=== PATIENT | female | born 1975 | race Caucasian/White ===

== ENCOUNTER → 2019-05-23 11:25 | Outpatient (BNVA) | payer MEDICARE, MEDICAID, SELFPAY | PROVIDERS: Family Provider Family Medicine; PCP Family Medicine; Referring Provider Internal Medicine Rheumatology; Visit Provider Internal Medicine Rheumatology | DX: M32.9 Systemic lupus erythematosus, unspecified (principal) | CPT/HCPCS: 96365; 96366; 96375; 96374; J0490; J1200; J2930; J7050 ==

== ENCOUNTER 2019-05-23 12:00 | Outpatient (CLI) | payer MEDICARE, MEDICAID, SELFPAY | END 2019-05-23 12:01 | disposition home or self-care (01) | LOC: RHEOACUTE 06-10 12:28 | PROVIDERS: Family Provider Family Medicine; PCP Family Medicine; Visit Provider Internal Medicine Rheumatology | DX: M32.9 Systemic lupus erythematosus, unspecified (principal) | CPT/HCPCS: J0490; J1200; J2930; J7050 ==

== ENCOUNTER 2019-06-20 10:51 | Outpatient (CLI) | payer MEDICARE, MEDICAID, SELFPAY ==
[2019-06-20 01:30] VITALS: BP 129/88; PULSE 88; RESP 16; TEMP 36.8; O2SAT 98
[2019-06-20] MEDS: diphenhydrAMINE 50 mg/mL SDV 1mL 25 MG IVP (12:24)
[2019-06-20] MEDS: sodium chloride 0.9 % (flush) syringe 10 mL 50 ML IV (12:24)
[2019-06-20 16:08] VITALS: BP 152/92; PULSE 92; RESP 16; TEMP 36.7; O2SAT 98
--- NOTE | 2019-06-20 16:11 | PC.NURSE ---
NOTED NUMEROUS BRUISES TO BILAT UPPER EXTREMITIES. SPOKE WITH PATIENT PRIVATELY AFTER INFUSION COMPLETE. MENTIONED CONCERN ABOUT BRUISES AND ASKED IF SHE NEEDED HELP OR RESOURCES FOR HELP. PT DENIED. STATES NOT IN A RELATIONSHIP NOW, JUST BRUISES.
== END 2019-06-20 10:52 | disposition home or self-care (01) ==
LOC: RHEOACUTE 10:52
PROVIDERS: Family Provider Family Medicine; PCP Family Medicine; Visit Provider Internal Medicine Rheumatology
DX: M32.14 Glomerular disease in systemic lupus erythematosus (principal); M32.9 Systemic lupus erythematosus, unspecified; Z79.899 Other long term (current) drug therapy
CPT/HCPCS: 36415; 80053; 81001; 85651; 86160; 87086; 96365; 96374; 96375; J0490; J1200; J2930; J7050

== ENCOUNTER → 2019-06-20 11:50 | Outpatient (BNVA) | payer MEDICARE, MEDICAID, SELFPAY | PROVIDERS: Family Provider Family Medicine; PCP Family Medicine; Visit Provider Internal Medicine Rheumatology | DX: M32.14 Glomerular disease in systemic lupus erythematosus (principal); M32.9 Systemic lupus erythematosus, unspecified | CPT/HCPCS: 85025 ==

== ENCOUNTER → 2019-07-06 18:55 | Outpatient (BNVA) | payer MEDICARE, SELFPAY | PROVIDERS: Family Provider Family Medicine; PCP Family Medicine; Visit Provider Family Medicine | DX: B35.1 Tinea unguium (principal); R30.0 Dysuria; N76.0 Acute vaginitis; B96.89 Other specified bacterial agents as the cause of diseases classified elsewhere; B37.3 Candidiasis of vulva and vagina; M32.19 Other organ or system involvement in systemic lupus erythematosus; B37.9 Candidiasis, unspecified | CPT/HCPCS: 81003; 87086 ==

== ENCOUNTER 2019-08-04 13:32 | Outpatient (CLI) | payer MEDICARE, MEDICAID, SELFPAY ==
[2019-08-04 13:45] VITALS: BP 138/78; PULSE 103; RESP 16; TEMP 36.8; O2SAT 95
[2019-08-04] MEDS: diphenhydrAMINE 50 mg/mL SDV 1mL 25 MG IVP (14:31)
== END 2019-08-04 13:33 | disposition home or self-care (01) ==
LOC: RHEOACUTE 13:32
PROVIDERS: Family Provider Family Medicine; PCP Family Medicine; Visit Provider Internal Medicine Rheumatology
DX: M32.9 Systemic lupus erythematosus, unspecified (principal); Z79.899 Other long term (current) drug therapy; Z11.1 Encounter for screening for respiratory tuberculosis; Z11.59 Encounter for screening for other viral diseases; Z72.89 Other problems related to lifestyle
CPT/HCPCS: 36415; 80076; 82306; 82565; 82575; 84156; 85651; 86140; 86160; 86704; 86803; 87340; 96365; 96374; 96375; J0490; J1200; J2930; J7050

== ENCOUNTER → 2019-08-04 13:47 | Outpatient (BNVA) | payer MEDICARE, MEDICAID, SELFPAY | PROVIDERS: Family Provider Family Medicine; PCP Family Medicine | DX: M32.9 Systemic lupus erythematosus, unspecified (principal); Z79.899 Other long term (current) drug therapy | CPT/HCPCS: 85025 ==

== ENCOUNTER → 2019-08-05 20:42 | Outpatient (BNVA) | payer MEDICARE, MEDICAID, SELFPAY | PROVIDERS: Family Provider Family Medicine; PCP Family Medicine; Visit Provider Internal Medicine Rheumatology | DX: M32.9 Systemic lupus erythematosus, unspecified (principal); Z79.899 Other long term (current) drug therapy | CPT/HCPCS: 81003 ==

== ENCOUNTER 2019-09-05 13:13 | Outpatient (CLI) | payer MEDICARE, MEDICAID, SELFPAY ==
[2019-09-05 13:29] VITALS: BP 120/62; PULSE 102; RESP 16; TEMP 36.7; O2SAT 98
[2019-09-05] MEDS: diphenhydrAMINE 50 mg/mL SDV 1mL 25 MG IVP (14:03)
[2019-09-05 15:19] VITALS: BP 125/78; PULSE 93; RESP 16; TEMP 36.9; O2SAT 98
== END 2019-09-05 13:14 | disposition home or self-care (01) ==
LOC: RHEOACUTE 13:14
PROVIDERS: Family Provider Family Medicine; PCP Family Medicine; Visit Provider Internal Medicine Rheumatology
DX: M32.9 Systemic lupus erythematosus, unspecified (principal)
CPT/HCPCS: 96365; 96374; 96375; J0490; J1200; J2930; J7050

== ENCOUNTER 2019-10-06 13:31 | Outpatient (CLI) | payer MEDICARE, MEDICAID, SELFPAY ==
[2019-10-06 14:00] VITALS: BP 141/85; PULSE 98; RESP 16; TEMP 36.7; O2SAT 98
[2019-10-06] MEDS: diphenhydrAMINE 50 mg/mL SDV 1mL 25 MG IVP (14:58)
[2019-10-06 16:25] VITALS: BP 145/79; PULSE 110; RESP 16; TEMP 36.4; O2SAT 98
== END 2019-10-06 13:32 | disposition home or self-care (01) ==
LOC: RHEOACUTE 13:32
PROVIDERS: Family Provider Family Medicine; PCP Family Medicine; Visit Provider Internal Medicine Rheumatology
DX: M32.19 Other organ or system involvement in systemic lupus erythematosus (principal); Z79.899 Other long term (current) drug therapy
CPT/HCPCS: 36415; 80076; 81003; 82565; 82570; 84156; 85025; 85651; 86140; 86160; 96365; 96374; 96375; J0490; J1200; J2930; J7050

== ENCOUNTER 2019-11-03 14:18 | Outpatient (CLI) | payer MEDICARE, MEDICAID, SELFPAY ==
[2019-11-03 14:46] VITALS: BP 150/85; PULSE 98; RESP 16; TEMP 36.8; O2SAT 98
[2019-11-03] MEDS: diphenhydrAMINE 50 mg/mL SDV 1mL 25 MG IVP (15:10)
[2019-11-03 16:45] VITALS: BP 132/83; PULSE 98; RESP 16; TEMP 36.6; O2SAT 98
== END 2019-11-03 14:19 | disposition home or self-care (01) ==
LOC: RHEOACUTE 14:19
PROVIDERS: Family Provider Family Medicine; PCP Family Medicine; Visit Provider Internal Medicine Rheumatology
DX: M32.9 Systemic lupus erythematosus, unspecified (principal)
CPT/HCPCS: 96365; 96374; 96375; J0490; J1200; J2930; J7050

== ENCOUNTER → 2019-11-30 15:27 | Outpatient (BNVA) | payer MEDICARE, MEDICAID, SELFPAY | PROVIDERS: Family Provider Family Medicine; PCP Family Medicine; Visit Provider Family Medicine | DX: M32.19 Other organ or system involvement in systemic lupus erythematosus (principal); R23.8 Other skin changes; N89.8 Other specified noninflammatory disorders of vagina; R53.83 Other fatigue; R63.5 Abnormal weight gain; Z51.81 Encounter for therapeutic drug level monitoring | CPT/HCPCS: 80053; 81000; 84443; 85025; 87491; 87591; 87661 ==

== ENCOUNTER 2019-12-07 13:31 | Outpatient (CLI) | payer MEDICARE, MEDICAID, SELFPAY ==
[2019-12-07 13:20] VITALS: BP 112/78; PULSE 90; RESP 16; TEMP 36.6; O2SAT 97
[2019-12-07] MEDS: diphenhydrAMINE 50 mg/mL SDV 1mL 25 MG IVP (14:00)
[2019-12-07 15:48] VITALS: BP 131/84; PULSE 89; RESP 16; TEMP 36.8; O2SAT 96
== END 2019-12-07 13:32 | disposition home or self-care (01) ==
LOC: RHEOACUTE 13:34
PROVIDERS: Family Provider Family Medicine; PCP Family Medicine; Visit Provider Internal Medicine Rheumatology
DX: M32.9 Systemic lupus erythematosus, unspecified (principal)
CPT/HCPCS: 96365; 96375; J0490; J1200; J2930; J7050

== ENCOUNTER → 2019-12-29 13:45 | Outpatient (BNVA) | payer OTHER, SELFPAY | PROVIDERS: Family Provider Family Medicine; PCP Family Medicine; Visit Provider Psychiatry & Neurology Psychiatry | DX: F31.81 Bipolar II disorder (principal); Z79.899 Other long term (current) drug therapy | CPT/HCPCS: 80061; 83036 ==

== ENCOUNTER → 2020-01-27 09:30 | Outpatient (BNVA) | payer MEDICARE, MEDICAID, SELFPAY ==
[2019-12-30 10:54] VITALS: BP 156/97; BMI 33.4
== END ==
PROVIDERS: Family Provider Family Medicine; PCP Family Medicine; Visit Provider Internal Medicine
DX: M32.19 Other organ or system involvement in systemic lupus erythematosus (principal); M32.9 Systemic lupus erythematosus, unspecified; R10.9 Unspecified abdominal pain; Z79.899 Other long term (current) drug therapy
CPT/HCPCS: 99213

== ENCOUNTER 2020-01-27 13:04 | Outpatient (CLI) | payer MEDICARE, MEDICAID, SELFPAY ==
[2019-12-30 10:54] VITALS: BP 156/97; BMI 33.4
--- NOTE | 2020-01-27 15:45 | US_ITS ---
WS: [id number] Bilateral renal ultrasound, 01/27/2020 Clinical Data: ?kidney stone Comparison: Abdomen ultrasound, 03/28/2013. Findings: The right kidney measures 10.8 cm x 5.0 cm x 4.4 cm and the left kidney is 11.3 cm x 6.5 cm x 6.2 cm. There are no cysts, masses or hydronephrosis. The renal cortical margin is normal. There are multipl e bilateral calcifications The abdominal aorta and inferior vena cava show no vascular abnormalities. The bladder was scanned and was not remarkable. US/US renal BI* [id number] Impression: Multiple bilateral renal calculi but no renal obstruction is seen.
== END 2020-01-27 13:05 | disposition home or self-care (01) ==
LOC: RAD 13:09
PROVIDERS: PCP Family Medicine; Visit Provider Internal Medicine
DX: N20.0 Calculus of kidney (principal); M32.19 Other organ or system involvement in systemic lupus erythematosus
CPT/HCPCS: 76770; 80053; 81003; 85025; 85651; 86140; 86160

== ENCOUNTER → 2020-03-21 08:08 | Outpatient (BNVA) | payer MEDICARE, SELFPAY ==
[2019-12-30 10:54] VITALS: BP 156/97; BMI 33.4
== END ==
PROVIDERS: PCP Family Medicine; Visit Provider Family Medicine
DX: R60.0 Localized edema (principal); M32.19 Other organ or system involvement in systemic lupus erythematosus; N20.0 Calculus of kidney; M51.9 Unspecified thoracic, thoracolumbar and lumbosacral intervertebral disc disorder; M79.7 Fibromyalgia; G89.4 Chronic pain syndrome; R39.9 Unspecified symptoms and signs involving the genitourinary system
CPT/HCPCS: 80053; 81000

== ENCOUNTER 2020-03-26 13:00 | Outpatient (CLI) | payer MEDICARE, MEDICAID, SELFPAY ==
[2019-12-30 10:54] VITALS: BP 156/97; BMI 33.4
[2020-03-26 13:16] VITALS: BP 129/76; PULSE 104; RESP 16; TEMP 36.8; O2SAT 97
--- NOTE | 2020-03-26 13:17 | PC.NURSE ---
Continue to c/o of right flank pain, off and on. States urine ok at PCP. Not on antibiotics.
[2020-03-26 13:30] VITALS: BMI 36.7
[2020-03-26] MEDS: acetaminophen 325 mg Tablet 975 MG PO (13:30)
[2020-03-26] MEDS: diphenhydrAMINE 50 mg/mL SDV 1mL 25 MG IVP (13:50)
--- NOTE | 2020-03-26 14:14 | PC.NURSE ---
labs obtained with IV start.
[2020-03-26 15:20] VITALS: BP 125/81; PULSE 102; RESP 16; O2SAT 97
== END 2020-03-26 13:01 | disposition home or self-care (01) ==
LOC: RHEOACUTE 13:01
PROVIDERS: PCP Family Medicine; Visit Provider Internal Medicine
DX: M32.19 Other organ or system involvement in systemic lupus erythematosus (principal); M32.9 Systemic lupus erythematosus, unspecified; Z79.899 Other long term (current) drug therapy
CPT/HCPCS: 81001; 82575; 84156; 85025; 85651; 87086; 96365; 96375; J0490; J1200; J2930; J7050

== ENCOUNTER 2020-04-23 13:12 | Outpatient (CLI) | payer MEDICARE, MEDICAID, SELFPAY ==
[2019-12-30 10:54] VITALS: BP 156/97; BMI 33.4
[2020-04-23 13:20] VITALS: BP 133/88; PULSE 101; RESP 16; TEMP 36.8; O2SAT 98
[2020-04-23] MEDS: acetaminophen 325 mg Tablet 975 MG PO (13:35)
[2020-04-23] MEDS: diphenhydrAMINE 50 mg/mL SDV 1mL 25 MG IVP (13:55)
[2020-04-23 14:10] VITALS: BMI 37.4
[2020-04-23 15:20] VITALS: BP 118/70; PULSE 88; RESP 16; O2SAT 98
== END 2020-04-23 13:13 | disposition home or self-care (01) ==
LOC: RHEOACUTE 13:13
PROVIDERS: PCP Family Medicine; Visit Provider Internal Medicine Rheumatology
DX: M32.19 Other organ or system involvement in systemic lupus erythematosus (principal); M79.7 Fibromyalgia; G89.4 Chronic pain syndrome; R63.5 Abnormal weight gain; Z79.899 Other long term (current) drug therapy; Z79.52 Long term (current) use of systemic steroids
CPT/HCPCS: 96365; 96375; 99213; J0490; J1200; J2930; J7050

== ENCOUNTER 2020-05-21 13:38 | Outpatient (CLI) | payer MEDICARE, MEDICAID, SELFPAY ==
[2019-12-30 10:54] VITALS: BP 156/97; BMI 33.4
[2020-05-21 14:05] VITALS: BP 130/84; PULSE 102; RESP 16; TEMP 36.6; O2SAT 98
[2020-05-21] MEDS: acetaminophen 325 mg Tablet 975 MG PO (14:17)
--- NOTE | 2020-05-21 14:35 | PC.NURSE ---
Pt on phone on important call. Will proceed with IV premeds after call ends
[2020-05-21] MEDS: diphenhydrAMINE 50 mg/mL SDV 1mL 25 MG IVP (14:45)
[2020-05-21 15:06] VITALS: BMI 35.9
[2020-05-21 16:14] VITALS: BP 123/80; PULSE 83; RESP 16; O2SAT 98
--- NOTE | 2020-05-21 16:14 | PC.NURSE ---
Dr. Hogan reviewed today's lab results. Medication changes written on medication list and given to pt.
== END 2020-05-21 13:39 | disposition home or self-care (01) ==
LOC: RHEOACUTE 13:39
PROVIDERS: PCP Family Medicine; Visit Provider Internal Medicine
DX: M32.19 Other organ or system involvement in systemic lupus erythematosus (principal); Z79.899 Other long term (current) drug therapy
CPT/HCPCS: 81001; 85025; 85651; 96365; 96375; J0490; J1200; J2930; J7050

== ENCOUNTER 2020-06-21 13:24 | Outpatient (CLI) | payer MEDICARE, MEDICAID, SELFPAY ==
[2019-12-30 10:54] VITALS: BP 156/97; BMI 33.4
[2020-06-21] MEDS: diphenhydrAMINE 50 mg/mL SDV 1mL 25 MG IVP (13:12)
[2020-06-21 14:30] VITALS: BP 122/78; BP 122/79; PULSE 105; PULSE 91; RESP 16; TEMP 36.6; TEMP 36.8; O2SAT 97; O2SAT 99
[2020-06-21] MEDS: acetaminophen 325 mg Tablet 975 MG PO (14:35)
[2020-06-21] MEDS: hydrocortisone 100 mg/2 mL SDV 75 MG IVP (14:37)
--- NOTE | 2020-07-17 08:38 | PC.NURSE ---
Due to an administrative issue we are doing a late entry for clarity of the medical record. The infusion case was routine and the approximate stop time was 1550 based upon the start time of 1450.
== END 2020-06-21 13:25 | disposition home or self-care (01) ==
PROVIDERS: PCP Family Medicine; Visit Provider Internal Medicine
DX: M32.19 Other organ or system involvement in systemic lupus erythematosus; M79.7 Fibromyalgia; G89.4 Chronic pain syndrome; Z79.52 Long term (current) use of systemic steroids
CPT/HCPCS: 96365; 96375; J0490; J1200; J1720; J7050

== ENCOUNTER → 2020-07-16 15:42 | Outpatient (BNVA) | payer MEDICARE, MEDICAID, SELFPAY ==
[2019-12-30 10:54] VITALS: BP 156/97; BMI 33.4
== END ==
PROVIDERS: PCP Family Medicine; Visit Provider Internal Medicine
DX: M32.19 Other organ or system involvement in systemic lupus erythematosus (principal); Z79.899 Other long term (current) drug therapy; Z79.52 Long term (current) use of systemic steroids
CPT/HCPCS: 99214

== ENCOUNTER 2020-07-19 13:57 | Outpatient (CLI) | payer MEDICARE, MEDICAID, SELFPAY ==
[2019-12-30 10:54] VITALS: BP 156/97; BMI 33.4
[2020-07-19 14:15] VITALS: BP 125/81; PULSE 117; RESP 16; TEMP 37; O2SAT 97
[2020-07-19] MEDS: acetaminophen 325 mg Tablet 975 MG PO (14:30)
[2020-07-19] MEDS: sodium chloride 0.9% 250 ML IV (14:35)
[2020-07-19] MEDS: diphenhydrAMINE 50 mg/mL SDV 1mL 25 MG IVP (14:38)
[2020-07-19 15:07] LABS: Alanine Aminotransferase 12 U/L (0-33); Albumin Level 4.2 g/dL (3.5-5.2); Alkaline Phosphatase 79 IU/L (35-105); Aspartate Amino Transferase 16 U/L (0-32); Globulin 2.3 g/dL (1.3-4.6); Total Bilirubin 0.3 mg/dL (0.15-1.2); Total Protein 6.5 g/dL (6.6-8.7)
[2020-07-19 15:25] LABS: Complement C3 106 mg/dL (90-180)
[2020-07-19 15:59] VITALS: BP 121/72; PULSE 92; RESP 16; TEMP 36.9; O2SAT 99
[2020-07-19 17:22] LABS: Urine Appearance Hazy (CLEAR); Urine Color Yellow (Yellow); pH Urine 6 (5-7)
[2020-07-19 17:23] LABS: Add Urine Microscopic? YES; Bilirubin Urine Neg (Negative); Blood Urine Neg (Negative); Glucose Urine UA Norm (Normal); Ketones Urine Negative (Negative); Leukocyte Esterase Urine Negative (Negative); Nitrate Urine Negative (Negative); Protein Urine Neg (Negative); Specific Gravity, Urine 1.025 (1.005-1.030); Urobilinogen Urine Norm (Negative)
[2020-07-19 17:24] LABS: Add Urine Culture? No; Bacteria Urine 1+ /hpf; Calcium Oxalate Crystals Urine 0-4 /hpf; Squamous Epithelial Cell Urine 25-40 /hpf (0-5)
[2020-07-19 18:08] LABS: Erythrocyte Sedimentation Rate 7 mm/hr (0-15)
== END 2020-07-19 13:58 | disposition home or self-care (01) ==
LOC: RHEOACUTE 14:01 → ONCMED 14:06
PROVIDERS: Internal Medicine Rheumatology; PCP Family Medicine; Visit Provider Internal Medicine
DX: M32.9 Systemic lupus erythematosus, unspecified (principal)
CPT/HCPCS: 80076; 81001; 85651; 86160; 96365; 96375; J0490; J1200; J2930; J7050

== ENCOUNTER 2020-08-28 10:54 | Outpatient (CLI) | payer MEDICARE, MEDICAID, SELFPAY ==
[2019-12-30 10:54] VITALS: BP 156/97; BMI 33.4
[2020-08-28 11:30] VITALS: BP 122/77; PULSE 101; RESP 18; TEMP 37.3; O2SAT 100
[2020-08-28] MEDS: sodium chloride 0.9% 250 ML IV (11:30)
[2020-08-28] MEDS: acetaminophen 325 mg Tablet 975 MG PO (11:35)
[2020-08-28] MEDS: diphenhydrAMINE 50 mg/mL SDV 1mL 25 MG IVP (11:38)
[2020-08-28 11:51] LABS: Basophils % 0.3 %; Eosinophils % 0.8 %; Hematocrit 39.3 % (37.0-47.0); Hemoglobin 12.7 g/dL (11.5-15.3); Lymphocytes # 0.8 10^3/uL (0.8-4.8); Lymphocytes % 22.9 %; Mean Corpuscular HGB Conc 32.3 g/dL (30.0-36.0); Mean Corpuscular Hemoglobin 28.1 pg (28.0-34.0); Mean Corpuscular Volume 86.9 fL (81-99); Mean Platelet Volume 11.3 fL (7.4-10.4); Monocytes # 0.4 10^3/uL (0.2-0.9); Monocytes % 11.2 %; Neutrophils # 2.37 10^3/uL (1.8-7.7); Neutrophils % 64.5 %; Nucleated Red Blood Cells % 0 %; Platelet Count 252 10^3/cmm (130-400); Red Blood Count 4.52 10^6/uL (4.1-5.3); Red Cell Distribution Width 15.4 % (12.1-15.1); White Blood Count 3.7 10^3/uL (4.0-10.0)
[2020-08-28 12:17] LABS: Alanine Aminotransferase 11 U/L (0-33); Albumin Level 4.2 g/dL (3.5-5.2); Alkaline Phosphatase 64 IU/L (35-105); Anion Gap 10.7 (5-19); Aspartate Amino Transferase 13 U/L (0-32); Blood Urea Nitrogen 12 mg/dL (6-20); Calcium 8.8 mg/dL (8.5-10.5); Carbon Dioxide 24 mmol/L (22-29); Chloride 108 mmol/L (98-107); Glomerular Filtration Rate 90.1 mL/min (90-130); Glucose 94 mg/dL (65-115); Osmolality Calculated 288 mOsm/kg (285-295); Potassium 3.7 mmol/L (3.5-5.1); Sodium 139 mmol/L (136-145); Total Bilirubin 0.3 mg/dL (0.15-1.2); Total Protein 6.2 g/dL (6.6-8.7)
[2020-08-28 12:27] LABS: Urine Creatinine 338 mg/dL (28-217)
[2020-08-28 12:28] LABS: Total Protein, Random Urine 27.9 mg/dL (0.0-20.0)
[2020-08-28 12:35] LABS: Add Urine Microscopic? YES; Bilirubin Urine 1+ (Negative); Blood Urine 2+ (Negative); Glucose Urine UA Norm (Normal); Ketones Urine Negative (Negative); Leukocyte Esterase Urine Negative (Negative); Nitrate Urine Negative (Negative); Protein Urine Neg (Negative); RBC Urine 0-4 /hpf (0-2); Urine Appearance Clear (CLEAR); Urine Color Yellow (Yellow); Urobilinogen Urine Norm (Negative); pH Urine 5 (5-7)
[2020-08-28 12:36] LABS: Add Urine Culture? No; Bacteria Urine 1+ /hpf; Mucus Urine 3+ /hpf
[2020-08-28 12:51] VITALS: BP 113/74; PULSE 88; RESP 18; TEMP 37.3; O2SAT 100
[2020-08-28 12:52] LABS: Complement C3 115 mg/dL (90-180)
[2020-08-28 12:56] LABS: Erythrocyte Sedimentation Rate 8 mm/hr (0-15)
== END 2020-08-28 10:55 | disposition home or self-care (01) ==
LOC: ONCMED 10:58
PROVIDERS: Internal Medicine Rheumatology; PCP Family Medicine; Visit Provider Internal Medicine
DX: M32.9 Systemic lupus erythematosus, unspecified (principal)
CPT/HCPCS: 80053; 81001; 82248; 82570; 84156; 85025; 85651; 86160; 96365; 96375; J0490; J1200; J2930; J7050

== ENCOUNTER 2020-09-25 10:50 | Outpatient (CLI) | payer MEDICARE, MEDICAID, SELFPAY ==
[2019-12-30 10:54] VITALS: BP 156/97; BMI 33.4
[2020-09-25 11:22] VITALS: BP 128/81; PULSE 99; RESP 18; TEMP 36.5; O2SAT 100
[2020-09-25] MEDS: acetaminophen 325 mg Tablet 975 MG PO (11:32)
[2020-09-25] MEDS: sodium chloride 0.9% 250 ML 75 ML IV (11:39)
[2020-09-25] MEDS: diphenhydrAMINE 50 mg/mL SDV 1mL 25 MG IVP (11:41)
[2020-09-25 13:05] VITALS: BP 126/80; PULSE 102; RESP 17; TEMP 36.7; O2SAT 99
== END 2020-09-25 10:51 | disposition home or self-care (01) ==
LOC: ONCMED 10:52
PROVIDERS: PCP Family Medicine; Visit Provider Internal Medicine
DX: M32.9 Systemic lupus erythematosus, unspecified (principal)
CPT/HCPCS: 96365; 96375; J0490; J1200; J2930; J7050

== ENCOUNTER → 2020-10-18 14:32 | Outpatient (BNVA) | payer MEDICARE, MEDICAID, SELFPAY ==
[2019-12-30 10:54] VITALS: BP 156/97; BMI 33.4
== END ==
PROVIDERS: PCP Nurse Practitioner Family; Visit Provider Internal Medicine
DX: M32.19 Other organ or system involvement in systemic lupus erythematosus (principal); Z79.899 Other long term (current) drug therapy; M79.7 Fibromyalgia
CPT/HCPCS: 36415; 99214

== ENCOUNTER 2020-10-18 16:08 | Outpatient (CLI) | payer MEDICARE, MEDICAID, SELFPAY ==
[2019-12-30 10:54] VITALS: BP 156/97; BMI 33.4
== END 2020-10-18 16:09 | disposition home or self-care (01) ==
PROVIDERS: PCP Nurse Practitioner Family; Visit Provider Internal Medicine
DX: Z79.899 Other long term (current) drug therapy (principal)
CPT/HCPCS: 36415; 80053; 82550; 82728; 83540; 83735; 84100; 84443; 85025; 85651; 86140

== ENCOUNTER 2020-10-23 10:55 | Outpatient (CLI) | payer MEDICARE, MEDICAID, SELFPAY ==
[2019-12-30 10:54] VITALS: BP 156/97; BMI 33.4
[2020-10-23 11:07] VITALS: BP 136/90; PULSE 109; RESP 18; TEMP 36.9; O2SAT 100
[2020-10-23] MEDS: acetaminophen 325 mg Tablet 975 MG PO (11:28)
[2020-10-23] MEDS: sodium chloride 0.9% 250 ML 75 ML IV (11:32)
[2020-10-23] MEDS: diphenhydrAMINE 50 mg/mL SDV 1mL 25 MG IVP (11:32)
[2020-10-23 13:10] VITALS: BP 138/77; PULSE 105; RESP 18; TEMP 37.2; O2SAT 99
== END 2020-10-23 10:56 | disposition home or self-care (01) ==
PROVIDERS: PCP Nurse Practitioner Family; Referring Provider Internal Medicine Rheumatology; Visit Provider Internal Medicine
DX: M32.9 Systemic lupus erythematosus, unspecified (principal)
CPT/HCPCS: 96365; 96375; J0490; J1200; J2930; J7050

== ENCOUNTER 2020-11-21 10:40 | Outpatient (CLI) | payer MEDICARE, MEDICAID, SELFPAY ==
[2019-12-30 10:54] VITALS: BP 156/97; BMI 33.4
[2020-11-21 11:00] VITALS: BP 124/82; PULSE 91; RESP 18; TEMP 36.6; O2SAT 98
[2020-11-21] MEDS: acetaminophen 325 mg Tablet 975 MG PO (11:36)
[2020-11-21] MEDS: diphenhydrAMINE 50 mg/mL SDV 1mL 25 MG IVP (11:38)
[2020-11-21] MEDS: sodium chloride 0.9% 250 ML 75 ML IV (11:38)
[2020-11-21 11:53] LABS: Basophils % 0.7 %; Eosinophils # 0.2 10^3/uL (0.0-0.8); Eosinophils % 4.2 %; Hematocrit 36.8 % (37.0-47.0); Hemoglobin 11.5 g/dL (11.5-15.3); Lymphocytes # 0.8 10^3/uL (0.8-4.8); Lymphocytes % 19.4 %; Mean Corpuscular HGB Conc 31.3 g/dL (30.0-36.0); Mean Corpuscular Hemoglobin 29.5 pg (28.0-34.0); Mean Corpuscular Volume 94.4 fL (81-99); Mean Platelet Volume 11.1 fL (7.4-10.4); Monocytes # 0.4 10^3/uL (0.2-0.9); Monocytes % 8.2 %; Neutrophils # 2.88 10^3/uL (1.8-7.7); Neutrophils % 67.3 %; Nucleated Red Blood Cells % 0 %; Platelet Count 255 10^3/cmm (130-400); White Blood Count 4.3 10^3/uL (4.0-10.0)
[2020-11-21 12:04] LABS: Add Urine Microscopic? YES; Bilirubin Urine Neg (Negative); Blood Urine Neg (Negative); Glucose Urine UA Norm (Normal); Ketones Urine Negative (Negative); Leukocyte Esterase Urine Negative (Negative); Nitrate Urine Negative (Negative); Protein Urine Neg (Negative); Urine Appearance Cloudy (CLEAR); Urine Color Dark Yellow (Yellow); Urobilinogen Urine Norm (Negative); pH Urine 5 (5-7)
[2020-11-21 12:05] LABS: Add Urine Culture? No; Amorphous Sediment Urine 1+ /hpf; Bacteria Urine 1+ /hpf; Mucus Urine 2+ /hpf
[2020-11-21 12:11] LABS: Alanine Aminotransferase 12 U/L (0-33); Albumin Level 3.9 g/dL (3.5-5.2); Alkaline Phosphatase 59 IU/L (35-105); Globulin 1.8 g/dL (1.3-4.6); Glomerular Filtration Rate 107.6 mL/min (90-130); Total Bilirubin 0.3 mg/dL (0.15-1.2); Total Protein 5.7 g/dL (6.6-8.7)
[2020-11-21 12:13] LABS: Aspartate Amino Transferase 20 U/L (0-32)
[2020-11-21 13:04] LABS: Urine Creatinine 215 mg/dL (28-217)
[2020-11-21 13:39] VITALS: BP 120/72; PULSE 94; RESP 18; TEMP 36.4; O2SAT 98
[2020-11-21 13:40] LABS: Total Protein, Random Urine 21.8 mg/dL (0.0-20.0)
== END 2020-11-21 10:41 | disposition home or self-care (01) ==
PROVIDERS: PCP Nurse Practitioner Family; Referring Provider Internal Medicine Rheumatology; Visit Provider Internal Medicine Rheumatology
DX: M32.19 Other organ or system involvement in systemic lupus erythematosus; Z79.899 Other long term (current) drug therapy; M79.7 Fibromyalgia; R53.83 Other fatigue
CPT/HCPCS: 36415; 80076; 81001; 82565; 82570; 84156; 85025; 96365; 96375; 99214; J0490; J1200; J2930; J7050

== ENCOUNTER 2020-12-19 11:47 | Outpatient (CLI) | payer MEDICARE, MEDICAID, SELFPAY ==
[2019-12-30 10:54] VITALS: BP 156/97; BMI 33.4
[2020-12-19 11:52] VITALS: BP 153/77; PULSE 90; RESP 18; TEMP 36.8; O2SAT 98
[2020-12-19] MEDS: sodium chloride 0.9% 250 ML 75 ML IV (12:25)
[2020-12-19] MEDS: acetaminophen 325 mg Tablet 975 MG PO (12:27)
[2020-12-19] MEDS: diphenhydrAMINE 50 mg/mL SDV 1mL 25 MG IVP (12:28)
[2020-12-19 14:10] VITALS: BP 143/78; PULSE 91; RESP 18; TEMP 37; O2SAT 99
[2020-12-19 14:45] VITALS: BP 134/78; PULSE 102; RESP 18; O2SAT 98
--- NOTE | 2020-12-19 15:44 | PC.NURSE ---
Patient's pulse was steady, but slightly elevated at 102 upon discharge. Patient stated that she was having some anxiety from a recent phone call she had received. She was showing no other S/S of distress, and after reassessment from another nursing colleague, she left the infusion suite.
== END 2020-12-19 11:48 | disposition home or self-care (01) ==
PROVIDERS: PCP Nurse Practitioner Family; Visit Provider Internal Medicine Rheumatology
DX: M32.9 Systemic lupus erythematosus, unspecified (principal)
CPT/HCPCS: 96365; 96375; J0490; J1200; J2930; J7050

== ENCOUNTER 2020-12-26 17:48 | Outpatient (CLI) | payer MEDICARE, MEDICAID, SELFPAY ==
[2019-12-30 10:54] VITALS: BP 156/97; BMI 33.4
[2020-12-31 13:31] LABS: Anti-Nuclear Antibody Pattern Nuclear, Speckled; Anti-Nuclear Antibody Screen POSITIVE (NEGATIVE)
== END 2020-12-26 17:49 | disposition home or self-care (01) ==
PROVIDERS: PCP Nurse Practitioner Family; Visit Provider Internal Medicine
DX: G89.4 Chronic pain syndrome (principal); M32.19 Other organ or system involvement in systemic lupus erythematosus; M79.7 Fibromyalgia; Z79.899 Other long term (current) drug therapy
CPT/HCPCS: 36415; 86038

== ENCOUNTER 2021-03-06 16:00 | Outpatient (CLI) | payer MEDICARE, MEDICAID, SELFPAY ==
[2019-12-30 10:54] VITALS: BP 156/97; BMI 33.4
[2021-03-06 16:25] LABS: Basophils % 0.3 %; Eosinophils % 0.3 %; Hematocrit 38.9 % (37.0-47.0); Hemoglobin 12.4 g/dL (11.5-15.3); Lymphocytes # 1.5 10^3/uL (0.8-4.8); Lymphocytes % 22.9 %; Mean Corpuscular HGB Conc 31.9 g/dL (30.0-36.0); Mean Corpuscular Hemoglobin 28.4 pg (28.0-34.0); Mean Corpuscular Volume 89.2 fl (81-99); Mean Platelet Volume 10.8 fL (7.4-10.4); Monocytes # 0.4 10^3/uL (0.2-0.9); Monocytes % 5.4 %; Neutrophils # 4.72 10^3/uL (1.8-7.7); Neutrophils % 70.8 %; Nucleated Red Blood Cells % 0 %; Platelet Count 283 10^3/cmm (130-400); Red Blood Count 4.36 10^6/uL (4.1-5.3); Red Cell Distribution Width 13.5 % (12.1-15.1); White Blood Count 6.7 10^3/uL (4.0-10.0)
[2021-03-06 16:59] LABS: Alanine Aminotransferase 10 U/L (0-33); Albumin Level 4.3 g/dL (3.5-5.2); Alkaline Phosphatase 58 IU/L (35-105); Anion Gap 14.9 (5-19); Aspartate Amino Transferase 12 U/L (0-32); Blood Urea Nitrogen 11 mg/dL (6-20); C Reactive Protein 0.3 mg/L (0.0-4.9); Calcium 9.3 mg/dL (8.5-10.5); Carbon Dioxide 27 mmol/L (22-29); Chloride 101 mmol/L (98-107); Complement C3 108 mg/dL (90-180); Globulin 2.3 g/dL (1.3-4.6); Glomerular Filtration Rate 90.1 mL/min (90-130); Glucose 88 mg/dL (65-115); Osmolality Calculated 289 mOsm/kg (285-295); Sodium 140 mmol/L (136-145); Total Bilirubin 0.4 mg/dL (0.15-1.2); Total Protein 6.6 g/dL (6.6-8.7)
[2021-03-06 17:44] LABS: Potassium 2.9 mmol/L (3.5-5.1)
[2021-03-06 18:06] LABS: Add Urine Microscopic? YES; Bilirubin Urine Neg (Negative); Blood Urine 3+ (Negative); Glucose Urine UA Norm (Normal); Ketones Urine Negative (Negative); Leukocyte Esterase Urine Negative (Negative); Nitrate Urine Negative (Negative); Protein Urine Trace (Negative); Specific Gravity, Urine 1.025 (1.005-1.030); Urine Appearance Cloudy (CLEAR); Urine Color Yellow (Yellow); Urobilinogen Urine Norm (Negative); pH Urine 6 (5-7)
[2021-03-06 18:07] LABS: Add Urine Culture? No; Bacteria Urine 2+ /hpf; Mucus Urine TRACE /hpf; RBC Urine 0-4 /hpf (0-2); Squamous Epithelial Cell Urine 15-25 /hpf (0-5); WBC Urine 15-25 /hpf (0-5)
[2021-03-07 16:45] LABS: Erythrocyte Sedimentation Rate 2 mm/hr (0-15)
== END 2021-03-06 16:01 | disposition home or self-care (01) ==
PROVIDERS: PCP Nurse Practitioner Family; Visit Provider Internal Medicine
DX: M32.19 Other organ or system involvement in systemic lupus erythematosus (principal); M79.7 Fibromyalgia; Z79.899 Other long term (current) drug therapy; M51.9 Unspecified thoracic, thoracolumbar and lumbosacral intervertebral disc disorder
CPT/HCPCS: 36415; 80053; 81001; 85025; 85651; 86140; 86160

== ENCOUNTER → 2021-03-13 13:42 | Outpatient (BNVA) | payer MEDICARE, MEDICAID, SELFPAY ==
[2021-03-12 13:23] VITALS: BP 156/97; BMI 33.4
== END ==
PROVIDERS: PCP Nurse Practitioner Family; Visit Provider Internal Medicine
DX: M32.19 Other organ or system involvement in systemic lupus erythematosus (principal); Z79.899 Other long term (current) drug therapy; M79.7 Fibromyalgia; E87.6 Hypokalemia
CPT/HCPCS: 99214

== ENCOUNTER 2021-04-01 14:59 | Outpatient (CLI) | payer MEDICARE, MEDICAID, SELFPAY ==
[2021-03-12 13:23] VITALS: BP 156/97; BMI 33.4
[2021-04-01 16:09] LABS: Alanine Aminotransferase 11 U/L (0-33); Albumin Level 4.9 g/dL (3.5-5.2); Alkaline Phosphatase 75 IU/L (35-105); Anion Gap 18.3 (5-19); Aspartate Amino Transferase 15 U/L (0-32); Blood Urea Nitrogen 10 mg/dL (6-20); Calcium 9.5 mg/dL (8.5-10.5); Carbon Dioxide 25 mmol/L (22-29); Chloride 103 mmol/L (98-107); Globulin 2.7 g/dL (1.3-4.6); Glomerular Filtration Rate 77.2 mL/min (90-130); Glucose 96 mg/dL (65-115); Osmolality Calculated 295 mOsm/kg (285-295); Potassium 3.3 mmol/L (3.5-5.1); Sodium 143 mmol/L (136-145); Total Bilirubin 0.3 mg/dL (0.15-1.2); Total Protein 7.6 g/dL (6.6-8.7)
[2021-04-01 16:22] LABS: Vitamin B12 592 pg/mL (232-1245)
[2021-04-01 17:01] LABS: Creatinine Urine, Random 145 mg/dL (28-217)
[2021-04-01 17:10] LABS: Potassium, Radom Urine 63 mmol/L
[2021-04-01 18:41] LABS: Glucose Urine UA Norm (Normal); Protein Urine 1+ (Negative); Urine Appearance Clear (CLEAR); Urine Color Yellow (Yellow); pH Urine 5 (5-7)
[2021-04-01 18:42] LABS: Add Urine Culture? No; Add Urine Microscopic? YES; Bilirubin Urine Neg (Negative); Blood Urine Neg (Negative); Ketones Urine Negative (Negative); Leukocyte Esterase Urine Trace (Negative); Nitrate Urine Negative (Negative); RBC Urine 0-4 /hpf (0-2); Squamous Epithelial Cell Urine 0-4 /hpf (0-5); Urobilinogen Urine Norm (Negative); WBC Urine 0-4 /hpf (0-5)
== END 2021-04-01 15:00 | disposition home or self-care (01) ==
PROVIDERS: PCP Nurse Practitioner Family; Visit Provider Internal Medicine
DX: E87.6 Hypokalemia (principal); M32.19 Other organ or system involvement in systemic lupus erythematosus; Z79.899 Other long term (current) drug therapy
CPT/HCPCS: 80053; 81001; 82575; 82607; 84133

== ENCOUNTER → 2021-05-30 12:59 | Outpatient (BNVA) | payer MEDICARE, MEDICAID, SELFPAY ==
[2021-03-12 13:23] VITALS: BP 156/97; BMI 33.4
== END ==
PROVIDERS: PCP Nurse Practitioner Family; Visit Provider Internal Medicine
DX: M32.19 Other organ or system involvement in systemic lupus erythematosus (principal); Z79.899 Other long term (current) drug therapy; M79.7 Fibromyalgia
CPT/HCPCS: 99214

== ENCOUNTER 2021-06-26 13:25 | Outpatient (CLI) | payer MEDICARE, MEDICAID, SELFPAY ==
[2021-03-12 13:23] VITALS: BP 156/97; BMI 33.4
--- NOTE | 2021-06-26 13:39 | US_ITS ---
WS: [id number] ULTRASOUND BREAST LEFT TECHNIQUE: Ultrasound left breast focused area of concern. CLINICAL INFORMATION: MASS IN L BREAST COMPARISON: Outside ultrasound examination March 15, 2021 FINDINGS: Ultrasound LEFT breast at the 12:00 position. The previously described hypoechoic nodule 12:00 positi on is no longer visualized. This may have been a complex cyst or dilated duct with debris. Recommend 6 month follow-up to confirm resolution. No suspicious findings. No biopsy was performed today. US/US breast LT limited* [id number] IMPRESSION: BI-RADS 3 PROBABLY BENIGN FOLLOW UP: 6 MONTH ULTRASOUND LEFT BREAST WITH DIAGNOSTIC MAMMOGRAPHY LEFT MELODY ST RIGHT BREAST SCREENING MAMMOGRAPHY IS ALSO DUE AT THAT TIME.
== END 2021-06-26 13:26 | disposition home or self-care (01) ==
PROVIDERS: PCP Nurse Practitioner Family; Visit Provider Nurse Practitioner Family
DX: N63.20 Unspecified lump in the left breast, unspecified quadrant (principal)
CPT/HCPCS: 76642

== ENCOUNTER → 2021-08-23 10:25 | Outpatient (BNVA) | payer MEDICARE, MEDICAID, SELFPAY ==
[2021-03-12 13:23] VITALS: BP 156/97; BMI 33.4
== END ==
PROVIDERS: PCP Nurse Practitioner Family; Visit Provider Internal Medicine
DX: M32.19 Other organ or system involvement in systemic lupus erythematosus (principal); E87.6 Hypokalemia; Z79.899 Other long term (current) drug therapy
CPT/HCPCS: 80053; 83735; 85025; 99214

== ENCOUNTER 2021-11-11 16:51 | Outpatient (CLI) | payer MEDICARE, MEDICAID, SELFPAY ==
[2021-03-12 13:23] VITALS: BP 156/97; BMI 33.4
[2021-11-11 17:32] LABS: Basophils % 0.2 %; Eosinophils % 0.7 %; Hematocrit 37.5 % (37.0-47.0); Hemoglobin 12.2 g/dL (11.5-15.3); Lymphocytes % 23.9 %; Mean Corpuscular HGB Conc 32.5 g/dL (30.0-36.0); Mean Corpuscular Hemoglobin 28.5 pg (28.0-34.0); Mean Corpuscular Volume 87.6 fl (81-99); Monocytes # 0.2 10^3/uL (0.2-0.9); Monocytes % 4.7 %; Neutrophils # 2.97 10^3/uL (1.8-7.7); Neutrophils % 70.3 %; Nucleated Red Blood Cells % 0 %; Platelet Count 298 10^3/cmm (130-400); Red Blood Count 4.28 10^6/uL (4.1-5.3); White Blood Count 4.2 10^3/uL (4.0-10.0)
[2021-11-11 18:01] LABS: Alanine Aminotransferase 10 U/L (0-33); Albumin Level 4.5 g/dL (3.5-5.2); Alkaline Phosphatase 62 IU/L (35-105); Anion Gap 13.2 (5-19); Aspartate Amino Transferase 13 U/L (0-32); Blood Urea Nitrogen 13 mg/dL (6-20); Carbon Dioxide 27 mmol/L (22-29); Chloride 102 mmol/L (98-107); Gamma Glutamyl Transferase 21 U/L (5-36); Globulin 2.1 g/dL (1.3-4.6); Glomerular Filtration Rate 76.9 mL/min (90-130); Glucose 184 mg/dL (65-115); Lactate Dehydrogenase 134 U/L (135-214); Magnesium 2.2 mg/dL (1.7-2.3); Osmolality Calculated 293 mOsm/kg (285-295); Potassium 3.2 mmol/L (3.5-5.1); Sodium 139 mmol/L (136-145); Total Bilirubin 0.2 mg/dL (0.15-1.2); Total Protein 6.6 g/dL (6.6-8.7)
[2021-11-11 18:09] LABS: Free T4 Free Thyroxine 1.04 ng/dL (0.82-1.77); Thyroid Stimulating Hormone 1.07 uIU/mL (0.27-4.20)
[2021-11-11 18:49] LABS: Add Urine Microscopic? YES; Bilirubin Urine Neg (Negative); Blood Urine Trace (Negative); Glucose Urine UA Norm (Normal); Ketones Urine Negative (Negative); Leukocyte Esterase Urine Negative (Negative); Nitrate Urine Negative (Negative); Protein Urine Neg (Negative); RBC Urine 0-4 /hpf (0-2); Specific Gravity, Urine 1.015 (1.005-1.030); Urine Appearance Clear (CLEAR); Urine Color Yellow (Yellow); Urobilinogen Urine Norm (Negative); pH Urine 5 (5-7)
[2021-11-11 18:50] LABS: Add Urine Culture? No; Bacteria Urine TRACE /hpf; Squamous Epithelial Cell Urine 0-4 /hpf (0-5); WBC Urine 0-4 /hpf (0-5)
[2021-11-11 20:44] LABS: Complement C3 119 mg/dL (90-180)
[2021-11-14 13:38] LABS: Anti-Nuclear Antibody Pattern Nuclear, Speckled; Anti-Nuclear Antibody Screen POSITIVE (NEGATIVE)
== END 2021-11-11 16:52 | disposition home or self-care (01) ==
LOC: LAB 16:54
PROVIDERS: PCP Nurse Practitioner Family; Visit Provider Internal Medicine
DX: M32.9 Systemic lupus erythematosus, unspecified (principal); E87.6 Hypokalemia; M32.19 Other organ or system involvement in systemic lupus erythematosus; M51.9 Unspecified thoracic, thoracolumbar and lumbosacral intervertebral disc disorder; M79.7 Fibromyalgia; Z79.899 Other long term (current) drug therapy; H90.3 Sensorineural hearing loss, bilateral; R42 Dizziness and giddiness
CPT/HCPCS: 36415; 80053; 81001; 82977; 83615; 83735; 84439; 84443; 84450; 84460; 86038; 86140; 86160

== ENCOUNTER 2021-11-28 08:49 | Outpatient (CLI) | payer MEDICARE, MEDICAID, SELFPAY ==
[2021-03-12 13:23] VITALS: BP 156/97; BMI 33.4
--- NOTE | 2021-11-28 08:30 | US_ITS ---
WS: [id number] Complete ABDOMINAL ULTRASOUND HISTORY: Abdominal pain and swelling. Fatty liver. COMPARISON: 01/27/2020 and 03/28/2013 Liver: 15.7 cm in length. Liver is normal size and echogenicity with no mass or intrahepatic dilatati on. Portal Vein: Normal hepatopetal flow with monophasic waveform. Gallbladder: Normally distended with no gallstones, wall thickening or pericholecystic fluid. Gallbladder wall thickness: 0.2 cm. Pancreas: Normal size and echogenicity. CBD: 0.2 cm. Right kidney: 10.2 cm x 4.9 cm x 4.8 cm. No mass, cortical thickening or hydronephrosis. There are a few echogenic foci which could be small renal calculi. Left kidney: 10.5 cm x 5.2 cm x 5.4 cm. No mass, cortical thickening or hydronephrosis. There are a few echogenic foci which could be small renal calculi. Spleen: Normal size and echogenicity. Abdominal aorta and IVC are within normal limits. No ascites. US/US abdomen complete* [id number] IMPRESSION: Normal complete abdomen ultrasound.
== END 2021-11-28 08:50 | disposition home or self-care (01) ==
PROVIDERS: PCP Nurse Practitioner Family; Visit Provider Internal Medicine
DX: R14.0 Abdominal distension (gaseous) (principal)
CPT/HCPCS: 76700

== ENCOUNTER → 2021-11-29 11:17 | Outpatient (BNVA) | payer MEDICARE, MEDICAID, SELFPAY ==
[2021-03-12 13:23] VITALS: BP 156/97; BMI 33.4
== END ==
PROVIDERS: PCP Nurse Practitioner Family; Visit Provider Internal Medicine
DX: M32.19 Other organ or system involvement in systemic lupus erythematosus (principal); Z79.899 Other long term (current) drug therapy; E87.6 Hypokalemia; R10.9 Unspecified abdominal pain
CPT/HCPCS: 99214

== ENCOUNTER 2022-02-11 15:17 | Outpatient (CLI) | payer MEDICARE, MEDICAID, SELFPAY ==
[2021-03-12 13:23] VITALS: BP 156/97; BMI 33.4
--- NOTE | 2022-02-11 15:40 | MM_ITS ---
WS: [id number] BILATERAL 3D TOMOSYNTHESIS DIGITAL DIAGNOSTIC MAMMOGRAPHY WITH CAD CLINICAL INFORMATION: MASS IN BREAST;CYST OF BREAST HISTORY: Bilateral breast soreness and lumps. COMPARISON: March 15, 2021 TECHNIQUE: Bilateral CC, MLO, and ML views. FINDINGS: The breasts are composed of heterogeneous fibroglandular density, which can limit the detection of sm all underlying mass lesions. Palpable marker upper outer LEFT breast. Palpable marker upper outer RIG HT breast. Ultrasound described below. No new suspicious findings in either breast. Persistent dense nodular parenchymal tissue upper outer breasts bilaterally similar to previous. ULTRASOUND BREAST BILATERAL TECHNIQUE: Ultrasound bilateral breast focused area of concern. CLINICAL INFORMATION: MASS IN BREAST;CYST OF BREAST COMPARISON: 06/26/2021 and 03/15/2021 FINDINGS: RIGHT BREAST: Ultrasound RIGHT breast 9:00 position 4 cm from the nipple in the area of patient juan rn. Dense underlying parenchymal tissue. No cystic or solid lesions. No suspicious lesions to target for biopsy. LEFT BREAST: Ultrasound LEFT breast at the 1:00 position 3 cm from the nipple in the area of patient concern. Dense underlying parenchymal tissue. No cystic or solid lesions. No lesions to target for bi opsy. MM/[place] [id number] IMPRESSION: BI-RADS: 2-Benign FOLLOW UP: 1 Year Follow-up Recommend return to annual screening mammography.
[2022-02-11 17:55] LABS: Basophils % 0.2 %; Eosinophils # 0.1 10^3/uL (0.0-0.8); Eosinophils % 2.2 %; Hematocrit 38.7 % (37.0-47.0); Hemoglobin 12.1 g/dL (11.5-15.3); Lymphocytes # 1.1 10^3/uL (0.8-4.8); Lymphocytes % 26.6 %; Mean Corpuscular HGB Conc 31.3 g/dL (30.0-36.0); Mean Corpuscular Hemoglobin 28.6 pg (28.0-34.0); Mean Corpuscular Volume 91.5 fl (81-99); Mean Platelet Volume 10.7 fL (7.4-10.4); Monocytes # 0.4 10^3/uL (0.2-0.9); Monocytes % 9.1 %; Neutrophils # 2.58 10^3/uL (1.8-7.7); Neutrophils % 61.9 %; Nucleated Red Blood Cells % 0 %; Platelet Count 274 10^3/cmm (130-400); Red Blood Count 4.23 10^6/uL (4.1-5.3); Red Cell Distribution Width 13.2 % (12.1-15.1); White Blood Count 4.2 10^3/uL (4.0-10.0)
[2022-02-11 18:25] LABS: Erythrocyte Sedimentation Rate 3 mm/hr (0-15)
[2022-02-11 18:26] LABS: Bilirubin Urine Negative (Negative); Blood Urine Negative (Negative); Glucose Urine UA Negative (Normal); Ketones Urine Negative (Negative); Leukocyte Esterase Urine Negative; Nitrate Urine Negative; Protein Urine Negative (Negative); Specific Gravity, Urine 1.025 (1.005-1.030); Urine Appearance Clear (CLEAR); Urine Color Yellow (Yellow); Urobilinogen Urine 0.2 mg/dL (Negative)
[2022-02-11 18:34] LABS: Add Urine Culture? No; Bacteria Urine TRACE /hpf; RBC Urine 0-4 /hpf (0-2); Squamous Epithelial Cell Urine 0-4 /hpf (0-5); WBC Urine 0-4 /hpf (0-5)
[2022-02-11 18:35] LABS: Alanine Aminotransferase 12 U/L (0-33); Albumin Level 4.3 g/dL (3.5-5.2); Alkaline Phosphatase 61 U/L (35-105); Anion Gap 14.7 (5-19); Aspartate Amino Transferase 16 U/L (0-32); Blood Urea Nitrogen 16 mg/dL (6-20); Calcium 9.2 mg/dL (8.5-10.5); Carbon Dioxide 27 mmol/L (22-29); Chloride 104 mmol/L (98-107); Globulin 2.4 g/dL (1.3-4.6); Glomerular Filtration Rate 89.7 mL/min (90-130); Glucose 70 mg/dL (65-115); Osmolality Calculated 294 mOsm/kg (285-295); Potassium 3.7 mmol/L (3.5-5.1); Sodium 142 mmol/L (136-145); Total Bilirubin 0.2 mg/dL (0.15-1.2); Total Protein 6.7 g/dL (6.6-8.7)
[2022-02-11 18:53] LABS: Urine Creatinine 137 mg/dL (28-217); Urine Protein Random 8 mg/dL
== END 2022-02-11 15:18 | disposition home or self-care (01) ==
LOC: LAB 15:18
PROVIDERS: Internal Medicine; PCP Nurse Practitioner Family; Visit Provider Nurse Practitioner Family
DX: E87.6 Hypokalemia (principal); M32.19 Other organ or system involvement in systemic lupus erythematosus; Z79.899 Other long term (current) drug therapy; N63.15 Unspecified lump in the right breast, overlapping quadrants; N63.21 Unspecified lump in the left breast, upper outer quadrant; N64.4 Mastodynia
CPT/HCPCS: 36415; 76642; 77062; 80053; 81001; 82570; 84156; 85025; 85651; 86140

== ENCOUNTER → 2022-02-18 14:11 | Outpatient (BNVA) | payer MEDICARE, MEDICAID, SELFPAY ==
[2022-02-18 15:44] VITALS: BP 156/97; BMI 33.4
== END ==
PROVIDERS: PCP Nurse Practitioner Family; Visit Provider Internal Medicine
DX: M32.19 Other organ or system involvement in systemic lupus erythematosus (principal); Z79.899 Other long term (current) drug therapy; E87.6 Hypokalemia
CPT/HCPCS: 99213; 99214

== ENCOUNTER 2022-05-20 09:35 | Outpatient (CLI) | payer MEDICARE, MEDICAID, SELFPAY ==
[2022-02-18 15:44] VITALS: BP 156/97; BMI 33.4
--- NOTE | 2022-05-20 09:43 | MR_ITS ---
WS: [id number] MRI HEAD WITH CONTRAST WITH ATTENTION TO THE INTERNAL AUDITORY CANALS TECHNIQUE: Sagittal T1, T2 axial, T2 axial flair, axial susceptibility weighted imaging, axial diffus ion weighted images, and coronal T2 images were obtained. Pre and post T1 axial and post T1 coronal i mages. ADC and FSPGR images. Post gadolinium images with attention to the internal auditory canals. A xial fiesta imaging. CLINICAL INFORMATION: HEARING LOSS COMPARISON: MRI 2018 FINDINGS: No evidence of restricted diffusion to suggest acute ischemia. Ventricular system and basal cisterns are patent. Mild patchy supratentorial white matter changes unchanged since 2018. This is nonspecific in a patient this age but can be seen with hypertension, diabetes, collagen vascular disease, and mi graine headaches. No significant parenchymal volume loss. Normal posterior fossa. Normal vascular roberto carlos w voids at the skull base. No extra-axial fluid collections. Mucosal thickening RIGHT mastoid tip. Polypoid mucosal thickening in the maxillary sinuses. Fluid in the LEFT maxillary sinus. No hemosiderin on the susceptibly weighted images. Proximal 7th and 8th aircraft loadmaster superintendent nial nerves are normal in appearance. Normal trigeminal nerve root entry zones. No evidence of enhanc ing IAC or CP angle mass. No abnormal intracranial enhancement. Normal dural venous sinuses. MR/MR iac's wo/w con* [id number] IMPRESSION: 1. 7th and 8th cranial nerves are normal in appearance. No evidence of enhanci ng IAC or CP angle mass. 2. Mucosal thickening RIGHT mastoid tip. Trace mucosal thickening LEFT mastoid tip. 3. Polypoid mucosal thickening in the maxillary sinuses with LEFT maxillary si nusitis. 4. Stable mild supratentorial white matter changes nonspecific in a patient th is age but can be seen with hypertension, diabetes, collagen vascular disease, and migraine headaches. 5. No other suspicious findings.
[2022-05-20] MEDS: gadobenate dimeglumine 20 mL vial IV (10:31)
== END 2022-05-20 09:36 | disposition home or self-care (01) ==
LOC: RAD 09:35
PROVIDERS: PCP Nurse Practitioner Family; Visit Provider Specialist
DX: H91.90 Unspecified hearing loss, unspecified ear (principal)
CPT/HCPCS: 70553; A9577

== ENCOUNTER → 2022-06-03 13:39 | Outpatient (BNVA) | payer MEDICARE, MEDICAID, SELFPAY ==
[2022-02-18 15:44] VITALS: BP 156/97; BMI 33.4
== END ==
PROVIDERS: PCP Nurse Practitioner Family; Visit Provider Internal Medicine
DX: Z79.899 Other long term (current) drug therapy (principal)
CPT/HCPCS: 80053; 80061; 81000; 83036; 85025; 85651; 86140

== ENCOUNTER → 2022-06-12 10:53 | Outpatient (BNVA) | payer MEDICARE, MEDICAID, SELFPAY ==
[2022-06-12 11:02] VITALS: BP 156/97; BMI 33.4
== END ==
PROVIDERS: PCP Nurse Practitioner Family; Visit Provider Internal Medicine
DX: R59.1 Generalized enlarged lymph nodes (principal)
CPT/HCPCS: 99214

== ENCOUNTER 2022-07-01 11:22 | Outpatient (CLI) | payer MEDICARE, MEDICAID, SELFPAY ==
[2022-06-12 11:02] VITALS: BP 156/97; BMI 33.4
[2022-07-01 11:57] LABS: Add Urine Microscopic? NO; Charge for UA Resulting for Rev
[2022-07-01 12:02] LABS: Basophils % 0.4 %; Eosinophils # 0.1 10^3/uL (0.0-0.8); Eosinophils % 1.9 %; Hematocrit 34.2 % (37.0-47.0); Hemoglobin 10.9 g/dL (11.5-15.3); Lymphocytes # 0.8 10^3/uL (0.8-4.8); Lymphocytes % 16.9 %; Mean Corpuscular HGB Conc 31.9 g/dL (30.0-36.0); Mean Corpuscular Hemoglobin 28.8 pg (28.0-34.0); Mean Corpuscular Volume 90.5 fl (81-99); Mean Platelet Volume 10.4 fL (7.4-10.4); Monocytes # 0.3 10^3/uL (0.2-0.9); Monocytes % 5.8 %; Neutrophils # 3.44 10^3/uL (1.8-7.7); Neutrophils % 74.6 %; Nucleated Red Blood Cells % 0 %; Platelet Count 252 10^3/cmm (130-400); Red Blood Count 3.78 10^6/uL (4.1-5.3); Red Cell Distribution Width 13.2 % (12.1-15.1); White Blood Count 4.6 10^3/uL (4.0-10.0)
[2022-07-01 12:03] LABS: Erythrocyte Sedimentation Rate 5 mm/hr (0-15)
[2022-07-01 12:19] LABS: Alanine Aminotransferase 12 U/L (0-33); Albumin Level 4.2 g/dL (3.5-5.2); Alkaline Phosphatase 67 U/L (35-105); Anion Gap 12.4 (5-19); Aspartate Amino Transferase 16 U/L (0-32); Bilirubin Urine Neg (Negative); Blood Urea Nitrogen 7 mg/dL (6-20); Blood Urine Neg (Negative); Calcium 8.8 mg/dL (8.5-10.5); Carbon Dioxide 27 mmol/L (22-29); Chloride 104 mmol/L (98-107); Globulin 1.9 g/dL (1.3-4.6); Glomerular Filtration Rate 106.7 mL/min (90-130); Glucose 65 mg/dL (65-115); Glucose Urine UA Norm (Normal); Ketones Urine Negative (Negative); Leukocyte Esterase Urine Negative (Negative); Nitrate Urine Negative (Negative); Osmolality Calculated 286 mOsm/kg (285-295); Potassium 3.4 mmol/L (3.5-5.1); Protein Urine Neg (Negative); Sodium 140 mmol/L (136-145); Total Bilirubin 0.2 mg/dL (0.15-1.2); Total Protein 6.1 g/dL (6.6-8.7); Urine Appearance Clear (CLEAR); Urine Color Yellow (Yellow); Urobilinogen Urine Norm (Negative); pH Urine 5 (5-7)
== END 2022-07-01 11:23 | disposition home or self-care (01) ==
LOC: LAB 11:26
PROVIDERS: PCP Nurse Practitioner Family; Visit Provider Internal Medicine
DX: M79.7 Fibromyalgia (principal); M32.19 Other organ or system involvement in systemic lupus erythematosus; Z79.899 Other long term (current) drug therapy; R21 Rash and other nonspecific skin eruption; R59.1 Generalized enlarged lymph nodes; D72.819 Decreased white blood cell count, unspecified
CPT/HCPCS: 36415; 80053; 81003; 85025; 85651; 86140; 99213

== ENCOUNTER 2022-07-30 12:03 | Outpatient (CLI) | payer MEDICARE, MEDICAID, SELFPAY ==
[2022-06-12 11:02] VITALS: BP 156/97; BMI 33.4
--- NOTE | 2022-07-31 11:25 | NM_ITS ---
NOTE: Report was unsigned for reason: Order was edited. Original Signature date and time was: Dictated By: Kimmie Bennett DO Signed By: Kimmie Bennett DO Signed Date/Time: 08/01/22 0636 WS: [id number] NUCLEAR MEDICINE THYROID UPTAKE AND SCAN HISTORY: NONTOXIC SINGLE THYROID NODULE COMPARISON: None available. Radionucleotide: 108 uCi Iodine-123 sodium iodide capsule. Oral ingestion. Imaging performed at 24 hours post ingestion of capsule. Marker placed over the chin and suprasternal notch. Very slight increased uptake involving the lower pole RIGHT thyroid. RIGHT thyroid is slightly greater size than the LEFT. No photopenic nodules. Thyroid uptake at 24 hours: 17.8%. (Normal uptake at 24 hours 10-30%). [facility] [id number] IMPRESSION: 1. Normal thyroid uptake. 2. Single nodule lower pole RIGHT thyroid with mild increased uptake. This cor responds to a RIGHT thyroid nodules also seen on the CT from 2019 in the lower pole of the RIGHT thyroid. 3. No photopenic nodules.
== END 2022-07-30 12:04 | disposition home or self-care (01) ==
LOC: RAD 12:03
PROVIDERS: PCP Nurse Practitioner Family; Visit Provider Specialist
DX: E04.1 Nontoxic single thyroid nodule (principal)
CPT/HCPCS: 78014; A9516

== ENCOUNTER 2022-09-05 11:14 | Outpatient (CLI) | payer MEDICARE, MEDICAID, SELFPAY ==
[2022-06-12 11:02] VITALS: BP 156/97; BMI 33.4
[2022-09-05 12:17] LABS: Basophils % 0.8 %; Eosinophils # 0.1 10^3/uL (0.0-0.8); Eosinophils % 3.4 %; Hematocrit 34.9 % (37.0-47.0); Hemoglobin 11.3 g/dL (11.5-15.3); Lymphocytes # 0.7 10^3/uL (0.8-4.8); Lymphocytes % 30.1 %; Mean Corpuscular HGB Conc 32.4 g/dL (30.0-36.0); Mean Corpuscular Hemoglobin 29.3 pg (28.0-34.0); Mean Corpuscular Volume 90.4 fl (81-99); Mean Platelet Volume 11.3 fL (7.4-10.4); Monocytes # 0.2 10^3/uL (0.2-0.9); Monocytes % 9.3 %; Neutrophils # 1.32 10^3/uL (1.8-7.7); Nucleated Red Blood Cells % 0 %; Platelet Count 251 10^3/cmm (130-400); Red Blood Count 3.86 10^6/uL (4.1-5.3); Red Cell Distribution Width 13.9 % (12.1-15.1); White Blood Count 2.4 10^3/uL (4.0-10.0)
[2022-09-05 12:22] LABS: Erythrocyte Sedimentation Rate 3 mm/hr (0-15)
[2022-09-05 12:38] LABS: Alanine Aminotransferase 8 U/L (0-33); Albumin Level 4.2 g/dL (3.5-5.2); Alkaline Phosphatase 58 U/L (35-105); Anion Gap 13.8 (5-19); Aspartate Amino Transferase 13 U/L (0-32); Blood Urea Nitrogen 10 mg/dL (6-20); Calcium 8.8 mg/dL (8.5-10.5); Carbon Dioxide 26 mmol/L (22-29); Chloride 105 mmol/L (98-107); Globulin 2.2 g/dL (1.3-4.6); Glomerular Filtration Rate 89.3 mL/min (90-130); Glucose 105 mg/dL (65-115); Osmolality Calculated 291 mOsm/kg (285-295); Potassium 3.8 mmol/L (3.5-5.1); Sodium 141 mmol/L (136-145); Total Bilirubin 0.4 mg/dL (0.15-1.2); Total Protein 6.4 g/dL (6.6-8.7)
== END 2022-09-05 11:15 | disposition home or self-care (01) ==
LOC: LAB 11:19
PROVIDERS: PCP Nurse Practitioner Family; Visit Provider Internal Medicine
DX: M32.19 Other organ or system involvement in systemic lupus erythematosus (principal); Z79.899 Other long term (current) drug therapy
CPT/HCPCS: 36415; 80053; 85025; 85651; 86140

== ENCOUNTER → 2022-09-15 13:02 | Outpatient (BNVA) | payer MEDICARE, MEDICAID, SELFPAY ==
[2022-06-12 11:02] VITALS: BP 156/97; BMI 33.4
== END ==
PROVIDERS: PCP Nurse Practitioner Family; Visit Provider Internal Medicine
DX: M32.19 Other organ or system involvement in systemic lupus erythematosus (principal); R21 Rash and other nonspecific skin eruption; D72.819 Decreased white blood cell count, unspecified; Z79.899 Other long term (current) drug therapy; E87.6 Hypokalemia
CPT/HCPCS: 99214

== ENCOUNTER 2022-10-23 14:19 | Oncology outpatient (recurring) (ONCR) | payer MEDICARE, MEDICAID, SELFPAY ==
[2022-10-01 13:55] VITALS: BP 134/79; BMI 27.1
== END 2022-11-14 23:59 | disposition home or self-care (01) ==
PROVIDERS: PCP Nurse Practitioner Family; Visit Provider Internal Medicine Medical Oncology
DX: D72.819 Decreased white blood cell count, unspecified (principal); E87.6 Hypokalemia; Z79.620 Long term (current) use of immunosuppressive biologic
CPT/HCPCS: 99203

== ENCOUNTER → 2022-10-29 13:10 | Outpatient (BNVA) | payer MEDICARE, MEDICAID, SELFPAY ==
[2022-10-29 15:52] VITALS: BP 134/79; BMI 27.1
== END ==
PROVIDERS: PCP Nurse Practitioner Family; Visit Provider Dermatology
DX: A18.4 Tuberculosis of skin and subcutaneous tissue (principal); L65.0 Telogen effluvium; D22.39 Melanocytic nevi of other parts of face; D22.5 Melanocytic nevi of trunk; L81.4 Other melanin hyperpigmentation
CPT/HCPCS: 99204

== ENCOUNTER → 2022-10-29 14:10 | Outpatient (BNVA) | payer MEDICARE, MEDICAID, SELFPAY ==
[2022-10-29 15:52] VITALS: BP 134/79; BMI 27.1
== END ==
PROVIDERS: PCP Nurse Practitioner Family; Referring Provider Specialist; Visit Provider Internal Medicine
DX: R23.2 Flushing (principal); R68.89 Other general symptoms and signs; E04.1 Nontoxic single thyroid nodule; E07.9 Disorder of thyroid, unspecified; J34.89 Other specified disorders of nose and nasal sinuses; R51.9 Headache, unspecified; J01.01 Acute recurrent maxillary sinusitis; H69.80 Other specified disorders of Eustachian tube, unspecified ear
CPT/HCPCS: 99203; 99204

== ENCOUNTER → 2022-10-29 14:11 | Outpatient (BNVA) | payer MEDICARE, MEDICAID, SELFPAY ==
[2022-10-01 13:55] VITALS: BP 134/79; BMI 27.1
== END ==
PROVIDERS: PCP Nurse Practitioner Family; Visit Provider Otolaryngology
DX: J34.89 Other specified disorders of nose and nasal sinuses (principal); E04.1 Nontoxic single thyroid nodule; R51.9 Headache, unspecified; J01.01 Acute recurrent maxillary sinusitis
CPT/HCPCS: 99203

== ENCOUNTER 2022-11-06 10:51 | Outpatient (CLI) | payer MEDICARE, MEDICAID, SELFPAY ==
[2022-10-29 15:52] VITALS: BP 134/79; BMI 27.1
--- NOTE | 2022-11-06 11:00 | US_ITS ---
WS: [id number] ULTRASOUND THYROID TECHNIQUE: Ultrasound of the thyroid. CLINICAL INFORMATION: thyroid nodule COMPARISON: Nuclear medicine thyroid scintigraphy July 31, [address] December 28, 2018 FINDINGS: Thyroid: Right and left thyroid lobes are normal in size and echotexture. . Right thyroid lobe: 4.3 cm x 2.1 cm x 1.9 cm Complex heterogeneous predominantly solid nodule with internal cystic change noted RIGHT thyroid toni uring 2.1 x 1.7 x 1.7 cm with associated vascularity. Left thyroid lobe: 3.8 cm x 1.4 cm x 0.9 cm. No suspicious left-sided nodules. Isthmus: 0.3 mm. Solid RIGHT eccentric isthmus nodule measuring 0.8 x 0.5 x 0.6 cm with a small amount of internal cys tic change Cervical lymphadenopathy: None. US/US thyroid [id number] IMPRESSION: 1. Complex heterogeneous RIGHT mid thyroid nodule measuring 2.1 x 1.7 x 1.7 CM . This appears stable since the CT neck . Recommend 12 month follow-up ultrasound versus further evaluation with FNA. 2. Small RIGHT eccentric isthmus nodule subcentimeter in size. Recommend 12 mo nth follow-up. 3. No suspicious left-sided nodules.
[2022-11-06 13:20] LABS: Estradiol 435.8 pg/mL; Follicle Stimulating Hormone 8.3 mIU/mL; Thyroid Stimulating Hormone 2.28 uIU/mL (0.27-4.20)
[2022-11-06 15:01] LABS: Free T4 Free Thyroxine 1.09 ng/dL (0.82-1.77)
[2022-11-07 12:06] LABS: T3 Total 89 ng/dL (76-181)
[2022-11-10 15:29] LABS: Thyroglobulin AB <1 IU/mL (< or = 1); Thyroid Peroxidase Antobodies 1 IU/mL (<9)
== END 2022-11-06 10:52 | disposition home or self-care (01) ==
PROVIDERS: PCP Nurse Practitioner Family; Referring Provider Internal Medicine; Visit Provider Otolaryngology
DX: E04.1 Nontoxic single thyroid nodule (principal); E07.9 Disorder of thyroid, unspecified; R23.2 Flushing; R68.89 Other general symptoms and signs
CPT/HCPCS: 36415; 76536; 82670; 83001; 83002; 84439; 84443; 84480; 86376; 86800; 99204

== ENCOUNTER 2022-11-30 17:23 | Outpatient (CLI) | payer MEDICARE, MEDICAID, SELFPAY ==
[2022-10-29 15:52] VITALS: BP 134/79; BMI 27.1
[2022-11-30 18:07] LABS: Urine Creatinine 92 mg/dL (28-217)
[2022-11-30 19:35] LABS: Total Volume Urine 1100 ml
[2022-12-05 12:55] LABS: Calculated Total (E+NE) 41 mcg/24 h (26-121)
== END 2022-11-30 17:24 | disposition home or self-care (01) ==
PROVIDERS: PCP Nurse Practitioner Family; Visit Provider Internal Medicine
DX: E07.9 Disorder of thyroid, unspecified (principal); R23.2 Flushing
CPT/HCPCS: 82384; 82570

== ENCOUNTER 2022-12-09 15:01 | Outpatient (CLI) | payer MEDICARE, MEDICAID, SELFPAY ==
[2022-10-29 15:52] VITALS: BP 134/79; BMI 27.1
[2022-12-15 16:30] LABS: IGF1 LC/MS 101 ng/mL (52-328); Z Score (Female) -0.7 SD (-2.0 - +2.0)
== END 2022-12-09 15:02 | disposition home or self-care (01) ==
LOC: LAB 15:10
PROVIDERS: PCP Nurse Practitioner Family; Visit Provider Internal Medicine
DX: E04.1 Nontoxic single thyroid nodule (principal); R23.2 Flushing; R68.89 Other general symptoms and signs
CPT/HCPCS: 36415; 84305

== ENCOUNTER 2022-12-10 18:15 | Outpatient (CLI) | payer MEDICARE, MEDICAID, SELFPAY ==
[2022-10-29 15:52] VITALS: BP 134/79; BMI 27.1
[2022-12-10 18:53] LABS: Total Volume Urine 2600 ml
[2022-12-10 19:12] LABS: Urine Creatinine 45 mg/dL (28-217)
[2022-12-10 19:58] LABS: Magnesium 2.6 mg/dL (1.7-2.3); Phosphorus 2.9 mg/dL (2.5-4.5)
[2022-12-10 20:12] LABS: Thyroid Stimulating Hormone 3.22 uIU/mL (0.27-4.20); Vitamin B12 1726 pg/mL (232-1245)
[2022-12-10 21:11] LABS: Complement C3 119 mg/dL (90-180)
[2022-12-12 17:49] LABS: Beef (27) IgE <0.10 kU/L; Beef Class 0; Lamb (F88) IgE <0.10 kU/L; Lamb Class 0; Pork (F26) IgE <0.10 kU/L; Pork Class 0
[2022-12-14 02:19] LABS: Gliadin Ab.IgA 1.3 U/mL; Gliadin Ab.IgG <1.0 U/mL; Tissue Transglutaminase IgA Ab <1.0 U/mL; Tissue transglutaminase Ab.IgG <1.0 U/mL
[2022-12-15 14:09] LABS: Immunoglobulin A 108 mg/dL (47-310)
[2022-12-17 17:50] LABS: Galactose-alpha-1,3 IgE <0.10 kU/L (<0.10)
[2022-12-22 10:49] LABS: Free Cortisol Urine 13.3 mcg/24 h (4.0-50.0); Total Urine 2600 mL; Urine Creatinine 1.24 g/24 h (0.50-2.15)
== END 2022-12-10 18:16 | disposition home or self-care (01) ==
PROVIDERS: Internal Medicine; PCP Nurse Practitioner Family; Visit Provider Internal Medicine
DX: D72.819 Decreased white blood cell count, unspecified (principal); E87.6 Hypokalemia; Z79.899 Other long term (current) drug therapy; E04.1 Nontoxic single thyroid nodule; R23.2 Flushing; R68.89 Other general symptoms and signs
CPT/HCPCS: 36415; 82530; 82570; 82607; 82784; 83516; 83735; 84100; 84443; 86003; 86008; 86160

== ENCOUNTER 2023-01-01 09:31 | Outpatient (CLI) | payer MEDICARE, MEDICAID, SELFPAY ==
[2022-10-29 15:52] VITALS: BP 134/79; BMI 27.1
--- NOTE | 2023-01-01 09:00 | CT_ITS ---
WS: [id number] CT PARANASAL SINUSES HISTORY: examination of sinuses TECHNIQUE: Contiguous 2.0 mm axial images obtained through the sinuses. Images are reconstructed in s agittal and coronal planes. All CT scans at [facility] use at least one of these dose optimiz ation techniques: automated exposure control; mA and/or kV adjustment per patient size (includes targ eted exams where dose is matched to clinical indication); or iterative reconstruction. DLP: 470.95 mGy.cm COMPARISON: None available. Frontal sinuses: Normal. Sphenoid sinus: Normal. Ethmoid sinuses: Normal Maxillary sinus: There is mild bilateral mucoperiosteal thickening. More focal mucous retention cyst in the right maxillary sinus measuring 16 x 17 mm. No air-fluid levels. No osseous destruction or bon y sclerosis. Ostiomeatal unit: No obstruction. Right middle turbinate evin bullosa. Normal position of the cribr iform plate. Mild curvature nasal septum without spurring. IMPRESSION: 1. No air-fluid levels or evidence for acute sinusitis. 2. Chronic appearing mucoperiosteal thickening in the maxillary sinuses with a right mucous retention cyst. No air-fluid levels. 3. No obstruction of the ostiomeatal units.
[2023-01-01 12:16] LABS: Basophils % 0.3 %; Eosinophils # 0.1 10^3/uL (0.0-0.8); Eosinophils % 3.1 %; Hematocrit 36.4 % (37.0-47.0); Hemoglobin 11.5 g/dL (11.5-15.3); Lymphocytes # 0.6 10^3/uL (0.8-4.8); Lymphocytes % 22.3 %; Mean Corpuscular HGB Conc 31.6 g/dL (30.0-36.0); Mean Corpuscular Hemoglobin 28.8 pg (28.0-34.0); Mean Platelet Volume 10.4 fL (7.4-10.4); Monocytes # 0.2 10^3/uL (0.2-0.9); Monocytes % 8.4 %; Neutrophils # 1.88 10^3/uL (1.8-7.7); Neutrophils % 65.6 %; Nucleated Red Blood Cells % 0 %; Platelet Count 223 10^3/cmm (130-400); Red Cell Distribution Width 13.9 % (12.1-15.1); White Blood Count 2.9 10^3/uL (4.0-10.0)
[2023-01-01 12:21] LABS: Erythrocyte Sedimentation Rate 1 mm/hr (0-15)
[2023-01-01 12:49] LABS: Alanine Aminotransferase 20 U/L (0-33); Albumin Level 4.3 g/dL (3.5-5.2); Alkaline Phosphatase 62 U/L (35-105); Anion Gap 12.9 (5-19); Aspartate Amino Transferase 25 U/L (0-32); Blood Urea Nitrogen 11 mg/dL (6-20); Calcium 8.9 mg/dL (8.5-10.5); Carbon Dioxide 28 mmol/L (22-29); Chloride 104 mmol/L (98-107); Globulin 2.1 g/dL (1.3-4.6); Glomerular Filtration Rate 106.7 mL/min (90-130); Glucose 71 mg/dL (65-115); Osmolality Calculated 290 mOsm/kg (285-295); Potassium 3.9 mmol/L (3.5-5.1); Sodium 141 mmol/L (136-145); Total Bilirubin 0.3 mg/dL (0.15-1.2); Total Protein 6.4 g/dL (6.6-8.7)
[2023-01-01 12:51] LABS: Add Urine Microscopic? YES; Bilirubin Urine Neg (Negative); Blood Urine 2+ (Negative); Glucose Urine UA Norm (Normal); Ketones Urine Negative (Negative); Leukocyte Esterase Urine Negative (Negative); Nitrate Urine Negative (Negative); Protein Urine Neg (Negative); Specific Gravity, Urine 1.005 (1.005-1.030); Urine Appearance Clear (CLEAR); Urine Color Yellow (Yellow); Urobilinogen Urine Norm (Negative); pH Urine 6 (5-7)
[2023-01-01 12:52] LABS: Add Urine Culture? No; Squamous Epithelial Cell Urine 0-4 /hpf (0-5); WBC Urine 0-4 /hpf (0-5)
== END 2023-01-01 09:32 | disposition home or self-care (01) ==
PROVIDERS: Internal Medicine; PCP Nurse Practitioner Family; Visit Provider Otolaryngology
DX: J34.89 Other specified disorders of nose and nasal sinuses (principal); J34.1 Cyst and mucocele of nose and nasal sinus; D17.9 Benign lipomatous neoplasm, unspecified; D72.819 Decreased white blood cell count, unspecified; E87.6 Hypokalemia; R10.9 Unspecified abdominal pain
CPT/HCPCS: 36415; 70486; 80053; 81001; 85025; 85651; 86140; 99204

== ENCOUNTER → 2023-01-08 15:05 | Outpatient (BNVA) | payer MEDICARE, MEDICAID, SELFPAY ==
[2022-10-29 15:52] VITALS: BP 134/79; BMI 27.1
== END ==
PROVIDERS: PCP Nurse Practitioner Family; Visit Provider Internal Medicine Cardiovascular Disease
DX: R00.2 Palpitations (principal); R07.81 Pleurodynia; R06.02 Shortness of breath; E07.9 Disorder of thyroid, unspecified; M32.19 Other organ or system involvement in systemic lupus erythematosus; D72.819 Decreased white blood cell count, unspecified
CPT/HCPCS: 99204

== ENCOUNTER 2023-01-23 14:28 | Outpatient (CLI) | payer MEDICARE, MEDICAID, SELFPAY ==
[2022-10-29 15:52] VITALS: BP 134/79; BMI 27.1
--- NOTE | 2023-01-23 13:45 | USCV_ITS ---
Khoi Cori Age: 47 Gender: F : 1975 Exam Date: 01/23/2023 14:58 Ordering Phys: Glenny Garcia MD ([email or web address]) Technologist: Exam Location: [facility] [place] Indication: EVAL FOR PFO BP: 130 / 80 HR: 69 Rhythm: Sinus Technical Quality: Adequate MEASUREMENTS (Male / Female) Normal Values 2D ECHO LVOT Diameter 2.0 cm LV Ejection Fraction MOD 2C 57.9 % LV Ejection Fraction 2C AL 58.1 % LA Diameter 3.2 cm LA Width 4.1 cm LA Height 4.2 cm RA Width 3.9 cm RA Height 5.1 cm Aorta at Sinotubular Diameter 2.3 cm IVC Diameter 1.7 cm M-MODE Aortic Annulus Diameter 2.6 cm LA Ao Ratio MM 1.2 MV E Point Septal Separation 0.3 cm DOPPLER AV Peak Velocity 120.0 cm/s LVOT Peak Velocity 110.0 cm/s AV Area Cont Eq vti 3.7 cm squared AV Area Cont Eq pk 2.9 cm squared MV Peak Velocity 94.0 cm/s MV Area PHT 3.9 cm squared Mitral E to A Ratio 1.3 MV E' Velocity 56.0 cm/s Mitral E to MV E' Ratio 6.6 Mitral E to LV E' Lateral Ratio 6.1 Mitral E to LV E' Septal Ratio 7.3 TR Peak Velocity 219.8 cm/s TR Peak Gradient 19.3 mmHg TR Mean Velocity 190.1 cm/s TR Mean Gradient 15.8 mmHg TR Velocity Time Integral 79.2 cm TV Peak E Velocity 57.0 cm/s Right Atrial Pressure 3.0 mmHg Pulmonary Artery Systolic Pressu 22.3 mmHg PV Peak Velocity 113.0 cm/s RV Acceleration Time 0.2 s RV Ejection Time 0.4 s RV AcT/ET 0.5 FINDINGS Left Ventricle Normal left ventricular size and systolic function, EF 56 %. No regional wall motion abnormalities. Right Ventricle The right ventricle is normal in size and function. Right Atrium The right atrium is normal in size. Left Atrium Saline contrast injection revealed no evidence of any right to left or left to right shunt Mitral Valve Mild mitral valve regurgitation. Aortic Valve No gross abnormalities noted Tricuspid Valve Mild tricuspid valve regurgitation. Estimated pulmonary artery peak systolic pressure 22 mm of Hg. Pulmonic Valve No gross abnormalities noted Pericardium Normal pericardium without effusion. Aorta Normal ascending aorta dimension. IVC The inferior vena cava appears normal. CONCLUSIONS Normal left ventricular size and systolic function, EF 56 %. No regional wall motion abnormalities. Normal cardiac chamber sizes. Mild mitral and tricuspid regurgitation. No intracardiac shunts, based on plain contrast injection There is no pericardial effusion. There are no intracardiac masses. Compared to the study from 11/20/2017, there may not be a significant change. Dr Glenny Garcia MD FACC (Electronically Signed) Final Date: 23 January 2023 18:35 S
== END 2023-01-23 14:29 | disposition home or self-care (01) ==
LOC: RAD 14:28
PROVIDERS: PCP Nurse Practitioner Family; Visit Provider Internal Medicine Cardiovascular Disease
DX: Q21.12 Patent foramen ovale (principal); R06.02 Shortness of breath; R00.2 Palpitations; I07.1 Rheumatic tricuspid insufficiency; I34.0 Nonrheumatic mitral (valve) insufficiency
CPT/HCPCS: C8929

== ENCOUNTER → 2023-02-06 09:46 | Outpatient (BNVA) | payer MEDICARE, MEDICAID, SELFPAY ==
[2022-10-29 15:52] VITALS: BP 134/79; BMI 27.1
== END ==
PROVIDERS: PCP Nurse Practitioner Family; Visit Provider Otolaryngology
DX: E04.2 Nontoxic multinodular goiter (principal); J34.2 Deviated nasal septum; J34.3 Hypertrophy of nasal turbinates; J32.0 Chronic maxillary sinusitis; E07.9 Disorder of thyroid, unspecified; R23.2 Flushing; R68.89 Other general symptoms and signs; E04.1 Nontoxic single thyroid nodule
CPT/HCPCS: 99213; 99214

== ENCOUNTER 2023-02-17 07:47 | Outpatient (CLI) | payer MEDICARE, MEDICAID, SELFPAY ==
[2022-10-29 15:52] VITALS: BP 134/79; BMI 27.1
--- NOTE | 2023-02-17 | ECG_ITS ---
[facility] Test Date: 2023-02-17 Pat Name: Cori Westfall Department: Room: Gender: Female Certified Fraud Examiner: Poppy Melgar : 1975 Requested By: Glenny Garcia Order Number: [id number] Amy MD: Glenny Garcia M.D. Interpretive Statements NAME OF STUDY: LEXISCAN SESTAMIBI STRESS TEST INDICATION: Chest Pain; Shortness of Breath, PROCEDURE: At the baseline, the EKG revealed normal sinus rhythm with a normal ST Ts. The baseline heart was 96 bpm with a blood pressue of 131/78 mm of Hg Lexiscan was infused over a period of 20 seconds. A total of 0.4 milligrams of Lexiscan was infused. The stress phase was continued for a total of 5 minutes. Heart rate at the end of the stress phase was 89 bpm with a blood pressure 131/70 mm of Hg. The EKG at the peak infusion revealed no significant changes. Sestamibi was injected 20 seconds after the Lexiscan infusion. Heart rate at the end of the recovery phase was 80 bpm with a blood pressure of 133/72 mm of Hg. CONCLUSION: 1. No significant EKG changes with the LexiScan infusion 2. No LexiScan induced chest pain or cardiac arrhythmia 3. Normal blood pressure and heart rate response 4. Sestamibi/sestamibi perfusion scan pending; see separate report. Electronically Signed On 02-20-2023 12:34:46 CDT by Glenny Garcia M.D. [id number]
[2023-02-17 07:51] VITALS: BMI 29.2
--- NOTE | 2023-02-17 07:52 | NMCV_ITS ---
NM helen perf SPECT r/s* [id number] Cori Westfall Age: 47 Gender: F : 1975 Exam Date: 02/17/2023 08:56 Ordering Phys: Glenny Garcia MD ([email or web address]) Technologist: NATALYA Maza Exam Location: [facility] Indications: CHEST PAIN, SHORTNESS OF BREATH STRESS TEST Please see separate stress test report in [facility] for full findings IMAGE PROTOCOL Rest/Stress 1 Lexiscan Day Radiopharmaceutical Dose (mCi) Administration Site Administered by Rest: Tc-99m 10.8 IV NATALYA Givens Sestamibi Stress:Tc-99m 32.4 IV NATALYA Givens Sestamibi Rest: 17-Feb-2023 60 Discovery 630 Stress: 17-Feb-2023 30 Discovery 630 0.4mg Lexiscan. Images obtained in supine and prone position. SPECT RESULTS Technical Quality: Excellent Raw Data Analysis: Normal Image Corrections: No attenuation or motion correction applied Summed Stress Score: 0 Summed Rest Score: 0 Summed Difference Score: 0 PERFUSION FINDINGS Fairly uniform myocardial tracer uptake with no significant perfusion abnormalities FUNCTIONAL RESULTS (calculated via Gated SPECT) Stress Image LV EF (%): 68 Stress EDV (mL):111 TID: 1.07 Stress ESV (mL):36 FUNCTIONAL FINDINGS: Segmental wall motion analysis revealing no gross wall motion abnormalities IMPRESSIONS 1. Unremarkable Myocardial perfusion imaging 2. Normal LV ejection fraction of 68%. 3. LV wall motion analysis revealing no gross wall motion abnormalities. 4. Normal LV volume Low probability for coronary ischemia, based on the above findings No similar previous studies are available for comparison Dr Glenny Garcia MD FAC (Electronically Signed) Final Date: 17 February 2023 19:24 S
[2023-02-17] MEDS: regadenoson 0.4 Mg/5 ml Syringe IVP (09:45)
[2023-02-17 09:55] VITALS: BP 133/72; PULSE 84
== END 2023-02-17 07:48 | disposition home or self-care (01) ==
PROVIDERS: PCP Nurse Practitioner Family; Visit Provider Internal Medicine Cardiovascular Disease
DX: R00.2 Palpitations (principal); R06.02 Shortness of breath; R07.9 Chest pain, unspecified; R07.81 Pleurodynia
CPT/HCPCS: 36415; 78452; 93017; 96374; A9500; J2785

== ENCOUNTER 2023-02-19 10:27 | Oncology outpatient (recurring) (ONCR) | payer MEDICARE, MEDICAID, SELFPAY ==
[2022-10-29 15:52] VITALS: BP 134/79; BMI 27.1
[2023-02-19] MEDS: sodium chloride 0.9% 250 ML 75 ML IV (13:38)
[2023-02-19] MEDS: acetaminophen 325 mg Tablet 650 MG PO (13:46)
[2023-02-19] MEDS: famotidine 20 mg Tablet PO (13:47)
[2023-02-19] MEDS: methylPREDNISolone sod succ 40 mg SDV IVP (13:48)
[2023-02-19] MEDS: anifrolumab-fnia 300 MG in sodium chloride 0.9% (100 ml) 100 ML 204 MG IV (14:03)
== END 2023-03-03 08:46 | disposition home or self-care (01) ==
PROVIDERS: PCP Nurse Practitioner Family; Visit Provider Internal Medicine Medical Oncology
DX: M32.9 Systemic lupus erythematosus, unspecified (principal)
CPT/HCPCS: 96365; 96374; 96375; J0491; J2920; J7050

== ENCOUNTER 2023-03-04 13:57 | Outpatient (CLI) | payer MEDICARE, MEDICAID, SELFPAY ==
[2022-10-29 15:52] VITALS: BP 134/79; BMI 27.1
[2023-03-04 15:17] LABS: NT Pro B Type Natriuretic Pept 255 pg/mL (0-125)
== END 2023-03-04 13:58 | disposition home or self-care (01) ==
PROVIDERS: PCP Nurse Practitioner Family; Visit Provider Internal Medicine Cardiovascular Disease
DX: R06.02 Shortness of breath (principal); R00.2 Palpitations; R07.9 Chest pain, unspecified; R63.5 Abnormal weight gain
CPT/HCPCS: 36415; 83880

== ENCOUNTER 2023-03-11 13:03 | Outpatient (CLI) | payer MEDICARE, MEDICAID, SELFPAY ==
[2022-10-29 15:52] VITALS: BP 134/79; BMI 27.1
--- NOTE | 2023-03-11 13:00 | MM_ITS ---
WS: [id number] VIEWS: MLO and CC views both breasts. 3D digital tomosynthesis is also included in this exam. Comparison made with prior exam of 09/20/2013, 07/30/2017, 06/04/2018, 03/15/2021. 02/11/2022.. Findings: There was no sign of mass, architectural distortion or suspicious calcification in either breast. Nod ular densities in both breasts stable in appearance. The breasts are extremely dense which lowers the sensitivity of mammography. Impression: MM/[place] [id number] BI-RADS: 2-Benign finding. FOLLOW-UP: 1 Year Follow-up This mammogram was also analyzed by the Computer Aided Detection System R2 Imag e Electro Mechanical Engineer.
== END 2023-03-11 13:04 | disposition home or self-care (01) ==
LOC: MOBLMAM 13:06
PROVIDERS: Visit Provider Family Medicine
DX: Z12.31 Encounter for screening mammogram for malignant neoplasm of breast (principal)
CPT/HCPCS: 77063; 77067

== ENCOUNTER 2023-03-20 12:47 | Outpatient (CLI) | payer MEDICARE, MEDICAID, SELFPAY ==
[2022-10-29 15:52] VITALS: BP 134/79; BMI 27.1
--- NOTE | 2023-03-20 12:45 | US_ITS ---
WS: [id number] ULTRASOUND-GUIDED RIGHT THYROID NODULE FNA HISTORY: Thyroid mass. Procedure, risks, and complications were explained to the patient. Consent has been obtained. Comparison: 11/06/2022. The skin is cleansed with ChloraPrep and anesthetized with 1% buffered lidocaine. FNA performed with 25 gauge needles. histologist technologist is present to fix slides. Large solid and cystic mass is identified in the RIGHT lobe of the thyroid. Mildly hypervascular mass. Multiple fine-needle aspirat ions are performed. IMPRESSION: Uncomplicated FNA of a mid RIGHT thyroid nodule. Final pathology results pending.
[2023-03-20 14:34] LABS: Basophils % 0.7 %; Eosinophils # 0.1 10^3/uL (0.0-0.8); Eosinophils % 2.5 %; Hematocrit 35.8 % (36-47); Lymphocytes # 1.6 10^3/uL (0.8-4.8); Lymphocytes % 28.5 %; Mean Corpuscular HGB Conc 31.8 g/dL (30-55); Mean Corpuscular Hemoglobin 29.6 pg (27-33); Mean Platelet Volume 10.1 fL (7.4-10.4); Monocytes # 0.5 10^3/uL (0.2-0.9); Monocytes % 8.3 %; Neutrophils # 3.29 10^3/uL (1.8-7.7); Neutrophils % 59.8 %; Nucleated Red Blood Cells % 0 %; Platelet Count 267 10^3/cmm (157-399); Red Blood Count 3.85 10^6/uL (3.85-5.65); Red Cell Distribution Width 13.1 % (12.1-15.1); White Blood Count 5.51 10^3/uL (3.29-11.43)
[2023-03-20 15:05] LABS: Erythrocyte Sedimentation Rate < 1 mm/hr (0-15)
[2023-03-20 15:23] LABS: Alanine Aminotransferase 25 U/L (0-33); Albumin Level 4.4 g/dL (3.5-5.2); Alkaline Phosphatase 58 U/L (35-105); Aspartate Amino Transferase 37 U/L (0-32); Blood Urea Nitrogen 15 mg/dL (6-20); Calcium 9.1 mg/dL (8.5-10.5); Carbon Dioxide 30 mmol/L (22-29); Chloride 103 mmol/L (98-107); Free T4 Free Thyroxine 1.13 ng/dL (0.82-1.77); Globulin 2.1 g/dL (1.3-4.6); Glomerular Filtration Rate 76.6 mL/min (90-130); Glucose 101 mg/dL (65-115); Osmolality Calculated 297 mOsm/kg (285-295); Sodium 143 mmol/L (136-145); Thyroid Stimulating Hormone 2.41 uIU/mL (0.27-4.20); Total Bilirubin 0.4 mg/dL (0.15-1.2); Total Protein 6.5 g/dL (6.6-8.7)
[2023-03-22 00:11] LABS: T3 Total 88 ng/dL (76-181)
[2023-03-29 02:54] LABS: TSH Receptor Binding Antibody <1.00 IU/L (< OR = 2.00)
== END 2023-03-20 12:48 | disposition home or self-care (01) ==
LOC: RAD 12:47
PROVIDERS: Internal Medicine; Visit Provider Otolaryngology
DX: E04.2 Nontoxic multinodular goiter (principal); E07.9 Disorder of thyroid, unspecified; M19.90 Unspecified osteoarthritis, unspecified site; M32.19 Other organ or system involvement in systemic lupus erythematosus; Z79.899 Other long term (current) drug therapy; E04.1 Nontoxic single thyroid nodule; R23.2 Flushing
CPT/HCPCS: 10005; 36415; 80053; 83516; 84439; 84443; 84480; 85025; 85651; 86140; 88173

== ENCOUNTER → 2023-03-26 10:24 | Outpatient (BNVA) | payer MEDICARE, MEDICAID, SELFPAY ==
[2022-10-29 15:52] VITALS: BP 134/79; BMI 27.1
== END ==
PROVIDERS: Visit Provider Nurse Practitioner Family
DX: R60.0 Localized edema (principal); M79.7 Fibromyalgia; R00.2 Palpitations
CPT/HCPCS: 36415; 80048; 83880; 85651; 86140; 99214

== ENCOUNTER 2023-04-08 08:12 | Outpatient (CLI) | payer MEDICARE, MEDICAID, SELFPAY ==
[2022-10-29 15:52] VITALS: BP 134/79; BMI 27.1
--- NOTE | 2023-04-08 08:45 | US_ITS ---
WS: [id number] ULTRASOUND SOFT TISSUES LEFT axilla/axillary tail. HISTORY: left axillary lymphadenopathy COMPARISON: Prior mammogram 03/11/2023, 03/15/2021, ultrasound 02/11/2022 and 02/23/2021 TECHNIQUE: 2-D and color Doppler imaging is submitted. In the area of pain and the palpable abnormality there are 2 benign cysts. The cysts have been previo usly described on prior exams. No solid mass. The largest cyst measures 1.9 x 1.7 x 0.8 cm. No distor tion or shadowing. IMPRESSION: Benign cysts near the LEFT axillary tail. Cysts have been identified on prior ultrasounds in a simila r location.
--- NOTE | 2023-04-08 09:30 | USCV_ITS ---
Kohi Cori Age: 47 Gender: F : 1975 Exam Date: 04/08/2023 08:54 Ordering Phys: Alison Barraza Technologist: PUSHPA [place]am [place] [facility] [place] Indication: HISTORY: Lower extremity edema. PROCEDURES: Venous duplex imaging was performed in bilateral lower extremities. The following venous structures were evaluated: common femoral vein, profunda vein, proximal portion of the greater saphenous vein, superficial femoral vein, and the popliteal vein. Serial compression, augmentation maneuvers, and spectral Doppler flow evaluation were performed. An evaluation for venous insufficiency was also completed. History of Bilateral GSV ablation FINDINGS: The veins were found to be easily compressible with spontaneous blood flow. Non pulsatile flow pattern. The greater saphenous vein on either side, appear to be ablated No significant reflux were noted in the small saphenous veins and also the below-knee segments of the greater saphenous vein CONCLUSIONS 1. No evidence of DVT in the above-mentioned identifiable veins. 2. No significant venous reflux were noted at the below-knee segments of the greater saphenous vein and the small saphenous vein segments on both sides Dr Glenny Garcia MD [facility] (Electronically Signed) Final Date: 10 April 2023 11:51 S
== END 2023-04-08 08:13 | disposition home or self-care (01) ==
LOC: RAD 08:12
PROVIDERS: Visit Provider Nurse Practitioner Family
DX: R59.1 Generalized enlarged lymph nodes (principal); R60.0 Localized edema; N60.02 Solitary cyst of left breast
CPT/HCPCS: 76882; 93970

== ENCOUNTER → 2023-04-16 07:59 | Outpatient (BNVA) | payer MEDICARE, MEDICAID, SELFPAY ==
[2022-10-29 15:52] VITALS: BP 134/79; BMI 27.1
== END ==
PROVIDERS: Visit Provider Nurse Practitioner Women's Health
DX: N92.6 Irregular menstruation, unspecified (principal)
CPT/HCPCS: 76830

== ENCOUNTER 2023-04-16 09:00 | Oncology outpatient (recurring) (ONCR) | payer MEDICARE, MEDICAID, SELFPAY ==
[2022-10-29 15:52] VITALS: BP 134/79; BMI 27.1
[2023-03-19 10:58] VITALS: BP 116/69; PULSE 70; RESP 17; TEMP 36.6; O2SAT 98
[2023-03-19] MEDS: sodium chloride 0.9% 250 ML 75 ML IV (11:22)
[2023-03-19] MEDS: methylPREDNISolone sod succ 40 mg SDV IVP (11:23)
[2023-03-19] MEDS: famotidine 20 mg Tablet PO (11:30)
[2023-03-19] MEDS: anifrolumab-fnia 300 MG in sodium chloride 0.9% (100 ml) 100 ML 204 MG IV (11:44)
[2023-03-19 12:30] VITALS: BP 124/77; PULSE 57; RESP 17; TEMP 36.7; O2SAT 99
[2023-04-16 10:40] VITALS: BP 104/63; PULSE 73; RESP 16; TEMP 36.8; O2SAT 98
[2023-04-16] MEDS: famotidine 20 mg Tablet PO (11:39)
[2023-04-16] MEDS: acetaminophen 325 mg Tablet 650 MG PO (11:39)
[2023-04-16] MEDS: methylPREDNISolone sod succ 40 mg/mL INJ IVP (11:40)
[2023-04-16] MEDS: sodium chloride 0.9% 250 ML 50 ML IV (11:40)
[2023-04-16] MEDS: anifrolumab-fnia 300 MG in sodium chloride 0.9% (100 ml) 100 ML 204 MG IV (12:08)
== END 2023-04-16 23:59 | disposition home or self-care (01) ==
PROVIDERS: Visit Provider Internal Medicine Medical Oncology
DX: M32.10 Systemic lupus erythematosus, organ or system involvement unspecified (principal); R60.0 Localized edema
CPT/HCPCS: 96365; 96375; 96413; 99214; J0491; J2920; J7050

== ENCOUNTER 2023-04-27 09:24 | Outpatient (CLI) | payer MEDICARE, MEDICAID, SELFPAY ==
[2022-10-29 15:52] VITALS: BP 134/79; BMI 27.1
--- NOTE | 2023-04-27 09:15 | USCV_ITS ---
Cori Westfall Age: 47 Gender: F : 1975 Exam Date: 04/27/2023 09:42 Ordering Phys: Alison Barraza Technologist: Slim Barksdale [place] [facility] [place]: LEG PAIN Risk Factors: Previous Vascular Surgery: RIGHT LEFT BP: 120.0 / 75.00 BP: 120.0/ 70.00 0 0 Waveform Velocity (cm/s) Velocity (cm/s) Waveform Triphasic 72.2 Iliac Prox 93.2 Triphasic Triphasic 56.7 Iliac Mid 113.4 Triphasic Triphasic Iliac Distal Triphasic 45.1 83.9 Triphasic 71.5 MATERIAL CONTROLLER 79.2 Triphasic Triphasic 86.2 SFA Prox 85.4 Triphasic Triphasic 81.6 SFA Mid 110.3 Triphasic Triphasic 83.1 SFA Dist 102.5 Triphasic Triphasic 61.4 POP 65.1 Triphasic Triphasic 69.9 BOTTOM MAN 64.4 Triphasic Triphasic 65.0 DPA 64.4 Triphasic 1.0 CORBIN 1.0 FINDINGS Resting CORBIN 1.0 bilaterally. Triphasic Doppler waveforms bilaterally Normal Doppler flow velocities bilaterally CONCLUSIONS Normal resting ABIs withi normal arterial Doppler velocities and Doppler waveforms, bilaterally. No significant arterial obstruction, based on the above findings. Dr Glenny Garcia MD [facility] (Electronically Signed) Final Date: 29 April 2023 15:46 S
== END 2023-04-27 09:25 | disposition home or self-care (01) ==
LOC: RAD 09:27
PROVIDERS: Visit Provider Nurse Practitioner Family
DX: I73.9 Peripheral vascular disease, unspecified (principal); R60.0 Localized edema; M79.605 Pain in left leg; M79.604 Pain in right leg; M32.19 Other organ or system involvement in systemic lupus erythematosus; Z79.899 Other long term (current) drug therapy; G62.9 Polyneuropathy, unspecified; E07.9 Disorder of thyroid, unspecified
CPT/HCPCS: 93925; 99214

== ENCOUNTER 2023-05-14 10:19 | Oncology outpatient (recurring) (ONCR) | payer MEDICARE, MEDICAID, SELFPAY ==
[2022-10-29 15:52] VITALS: BP 134/79; BMI 27.1
[2023-05-14 10:58] VITALS: BP 96/62; PULSE 74; RESP 18; TEMP 36.6; O2SAT 99
[2023-05-14] MEDS: acetaminophen 325 mg Tablet 650 MG PO (11:34)
[2023-05-14] MEDS: famotidine 20 mg Tablet PO (11:34)
[2023-05-14 11:35] LABS: Add Urine Microscopic? NO; Charge for UA Resulting for Rev
[2023-05-14] MEDS: methylPREDNISolone sod succ 40 mg/mL INJ IVP (11:35)
[2023-05-14] MEDS: sodium chloride 0.9% 250 ML 75 ML IV (11:35)
[2023-05-14 11:39] LABS: Basophils % 0.2 %; Eosinophils # 0.2 10^3/uL (0.0-0.8); Eosinophils % 3.4 %; Hematocrit 42.5 % (36-47); Lymphocytes # 0.3 10^3/uL (0.8-4.8); Lymphocytes % 6.7 %; Mean Corpuscular HGB Conc 32.7 g/dL (30-55); Mean Corpuscular Hemoglobin 29.8 pg (27-33); Mean Platelet Volume 10.6 fL (7.4-10.4); Monocytes # 0.2 10^3/uL (0.2-0.9); Monocytes % 3.6 %; Neutrophils # 3.84 10^3/uL (1.8-7.7); Neutrophils % 85.9 %; Nucleated Red Blood Cells % 0 %; Platelet Count 235 10^3/cmm (157-399); Red Blood Count 4.67 10^6/uL (3.85-5.65); Red Cell Distribution Width 12.9 % (12.1-15.1); White Blood Count 4.47 10^3/uL (3.29-11.43)
[2023-05-14] MEDS: anifrolumab-fnia 300 MG in sodium chloride 0.9% (100 ml) 100 ML 204 MG IV (11:40)
[2023-05-14 11:46] LABS: Urine Appearance Clear (CLEAR); Urine Color Yellow (Yellow)
[2023-05-14 11:47] LABS: Bilirubin Urine Neg (Negative); Blood Urine Neg (Negative); Glucose Urine UA Norm (Normal); Ketones Urine Negative (Negative); Leukocyte Esterase Urine Negative (Negative); Nitrate Urine Negative (Negative); Protein Urine Neg (Negative); Specific Gravity, Urine 1.005 (1.005-1.030); Urobilinogen Urine Norm (Negative); pH Urine 6.5 (5-7)
[2023-05-14 11:49] LABS: Erythrocyte Sedimentation Rate 2 mm/hr (0-15)
[2023-05-14 12:01] LABS: Creatinine Urine, Random 31 mg/dL (28-217); Microalbum Creatinine Ratio Ur 32 mg/dL (0-20); Microalbumin Random Urine 1 ug/dL (0-20); UPRO/UCREAT Ratio 0.13 mg/mg CR; Urine Creatinine 32 mg/dL (28-217); Urine Protein Random 4 mg/dL
[2023-05-14 12:16] LABS: Alanine Aminotransferase 15 U/L (0-33); Albumin Level 4.4 g/dL (3.5-5.2); Alkaline Phosphatase 53 U/L (35-105); Anion Gap 14.7 (5-19); Aspartate Amino Transferase 25 U/L (0-32); Blood Urea Nitrogen 12 mg/dL (6-20); C Reactive Protein 49.4 mg/L (0.0-4.9); Calcium 8.8 mg/dL (8.5-10.5); Carbon Dioxide 23 mmol/L (22-29); Chloride 105 mmol/L (98-107); Globulin 2.8 g/dL (1.3-4.6); Glomerular Filtration Rate 88.9 mL/min (90-130); Glucose 104 mg/dL (65-115); Magnesium 2.4 mg/dL (1.7-2.3); Osmolality Calculated 288 mOsm/kg (285-295); Phosphorus 2.4 mg/dL (2.5-4.5); Potassium 3.7 mmol/L (3.5-5.1); Sodium 139 mmol/L (136-145); Thyroid Stimulating Hormone 1.73 uIU/mL (0.27-4.20); Total Bilirubin 0.4 mg/dL (0.15-1.2); Total Protein 7.2 g/dL (6.6-8.7); Vitamin B12 859 pg/mL (232-1245)
[2023-05-14 12:25] VITALS: BP 94/59; PULSE 67; RESP 18; TEMP 36.8; O2SAT 99
== END 2023-05-17 23:59 | disposition home or self-care (01) ==
PROVIDERS: Internal Medicine; Visit Provider Internal Medicine Medical Oncology
DX: M32.10 Systemic lupus erythematosus, organ or system involvement unspecified (principal); E07.9 Disorder of thyroid, unspecified
CPT/HCPCS: 80053; 81003; 82044; 82570; 82607; 83735; 84100; 84156; 84443; 85025; 85651; 86140; 96365; 96367; J0491; J2920; J7050

== ENCOUNTER 2023-06-11 08:25 | Oncology outpatient (recurring) (ONCR) | payer MEDICARE, MEDICAID, SELFPAY ==
[2022-10-29 15:52] VITALS: BP 134/79; BMI 27.1
[2023-06-11] MEDS: sodium chloride 0.9% 250 ML 75 ML IV (09:45)
[2023-06-11] MEDS: acetaminophen 325 mg Tablet 650 MG PO (09:46)
[2023-06-11] MEDS: methylPREDNISolone sod succ 40 mg/mL INJ IVP (09:47)
[2023-06-11] MEDS: famotidine 20 mg Tablet PO (09:47)
[2023-06-11] MEDS: anifrolumab-fnia 300 MG in sodium chloride 0.9% (100 ml) 100 ML 204 MG IV (10:11)
[2023-06-11 10:51] VITALS: BP 108/73; PULSE 57; TEMP 36.6; O2SAT 95
== END 2023-06-17 23:59 | disposition home or self-care (01) ==
PROVIDERS: PCP Nurse Practitioner Family; Visit Provider Internal Medicine Medical Oncology
DX: M32.10 Systemic lupus erythematosus, organ or system involvement unspecified (principal); M47.816 Spondylosis without myelopathy or radiculopathy, lumbar region; M47.812 Spondylosis without myelopathy or radiculopathy, cervical region; M48.062 Spinal stenosis, lumbar region with neurogenic claudication
CPT/HCPCS: 72050; 72110; 96375; 96413; 99204; J0491; J2920; J7050

== ENCOUNTER 2023-07-13 13:59 | Oncology outpatient (recurring) (ONCR) | payer OTHER, SELFPAY ==
[2022-10-29 15:52] VITALS: BP 134/79; BMI 27.1
[2023-07-13 15:16] VITALS: BP 120/74; PULSE 66; RESP 16; TEMP 36.8; O2SAT 99
--- NOTE | 2023-07-13 15:20 | PC.NURSE ---
Patient educated on the reason for premedication prior to treatment. patient reports that she took Tylenol 650mg PO prior to arrival and does not want to take any other medication other than the infusion.
[2023-07-13] MEDS: anifrolumab-fnia 300 MG in sodium chloride 0.9% (100 ml) 100 ML 204 MG IV (15:44)
[2023-07-13 16:20] VITALS: BP 118/73; PULSE 69; TEMP 36.4; O2SAT 97
== END 2023-07-16 23:59 | disposition home or self-care (01) ==
PROVIDERS: PCP Nurse Practitioner Family; Visit Provider Internal Medicine Medical Oncology
DX: M32.10 Systemic lupus erythematosus, organ or system involvement unspecified (principal)
CPT/HCPCS: 96413; A4222; J0491

== ENCOUNTER 2023-08-13 12:57 | Oncology outpatient (recurring) (ONCR) | payer MEDICARE, MEDICAID, SELFPAY ==
[2022-10-29 15:52] VITALS: BP 134/79; BMI 27.1
[2023-08-13] MEDS: sodium chloride 0.9% 250 ML 75 ML IV (13:41)
[2023-08-13] MEDS: famotidine 20 mg Tablet PO (13:41)
[2023-08-13] MEDS: acetaminophen 325 mg Tablet 650 MG PO (13:41)
--- NOTE | 2023-08-13 13:45 | PC.NURSE ---
patient refused benadryl and steroid prior to treatment
[2023-08-13 13:55] LABS: Basophils % 0.8 %; Eosinophils # 0.1 10^3/uL (0.0-0.8); Hematocrit 37.4 % (36-47); Lymphocytes # 0.9 10^3/uL (0.8-4.8); Lymphocytes % 23.6 %; Mean Corpuscular HGB Conc 32.6 g/dL (30-55); Mean Corpuscular Volume 92.1 fl (85-98); Mean Platelet Volume 9.5 fL (7.4-10.4); Monocytes # 0.4 10^3/uL (0.2-0.9); Monocytes % 9.3 %; Neutrophils # 2.55 10^3/uL (1.8-7.7); Nucleated Red Blood Cells % 0 %; Platelet Count 231 10^3/cmm (157-399); Red Blood Count 4.06 10^6/uL (3.85-5.65); Red Cell Distribution Width 12.8 % (12.1-15.1); White Blood Count 3.98 10^3/uL (3.29-11.43)
[2023-08-13] MEDS: anifrolumab-fnia 300 MG in sodium chloride 0.9% (100 ml) 100 ML 204 MG IV (14:08)
[2023-08-13 14:09] LABS: Alanine Aminotransferase 10 U/L (0-33); Albumin Level 3.6 g/dL (3.5-5.2); Alkaline Phosphatase 47 U/L (35-105); Aspartate Amino Transferase 19 U/L (0-32); Globulin 1.9 g/dL (1.3-4.6); Glomerular Filtration Rate 76.2 mL/min (90-130); Total Bilirubin 0.5 mg/dL (0.15-1.2); Total Protein 5.5 g/dL (6.6-8.7)
[2023-08-13 14:54] VITALS: BP 113/70; PULSE 68; RESP 16; TEMP 36.3; O2SAT 98
== END 2023-08-16 23:59 | disposition home or self-care (01) ==
PROVIDERS: Internal Medicine Rheumatology; PCP Nurse Practitioner Family; Visit Provider Internal Medicine Medical Oncology
DX: M32.10 Systemic lupus erythematosus, organ or system involvement unspecified (principal); Z53.9 Procedure and treatment not carried out, unspecified reason
CPT/HCPCS: 80076; 82565; 85025; 86140; 96413; A4222; J0491; J7050

== ENCOUNTER 2023-08-26 12:29 | Outpatient (CLI) | payer MEDICARE, MEDICAID, SELFPAY ==
[2022-10-29 15:52] VITALS: BP 134/79; BMI 27.1
--- NOTE | 2023-08-26 12:30 | CT_ITS ---
WS: [id number] CT SINUSES TECHNIQUE: Noncontrast CT of the paranasal sinuses with coronal and sagittal reformatted images. CLINICAL INFORMATION: Chronic sinus concerns COMPARISON: CT 01/01/2023) DLP: 358.[address] scans at [facility] use at least one of these dose optimization techniques: automated e xposure control; mA and/or kV adjustment per patient size (includes targeted exams where dose is matc hed to clinical indication); or iterative reconstruction. FINDINGS: RIGHT to LEFT nasal septal deviation measuring approximately 6 to 7 mm. Mild narrowing of the ostiome atal units bilaterally which remain patent. RIGHT evin bullosa. Polypoid mucosal thickening in the maxillary sinuses with small retention cyst or polyps largest in the RIGHT inferior maxillary sinus m easuring 1.9 cm. Frontal sinuses are well aerated. Mild mucosal thickening in the ethmoid air cells w hich remain patent. Sphenoid sinuses are patent. Mild mucosal thickening along the sphenoid sinus ost ia with mild narrowing. Frontal intersinus septal cells on the LEFT. Normal parapharyngeal fat. Partially visualized intracranial contents appears normal for age. Sinus opacification is slightly improved compared to previous. Mild mucosal thickening RIGHT greater than LEFT mastoid tip. IMPRESSION: 1. RIGHT to LEFT nasal septal deviation measuring approximately 6 to 7 mm. 2. Mild narrowing of the ostiomeatal units bilaterally which remain patent. RIGHT evin bullosa. 3. Mild polypoid mucosal thickening in the maxillary sinuses RIGHT greater than LEFT described above . 4. Frontal intersinus septal cells on the LEFT can result in obstruction of the LEFT frontal ethmoid al recess. This appears patent today. 5. Sphenoid sinuses are patent with mild narrowing along the ostia. 6. Mild mucosal thickening in the RIGHT greater than LEFT mastoid tip. Mastoid air cells are otherwi se well aerated. 7. Normal posterior nasopharynx and parapharyngeal fat.
== END 2023-08-26 12:30 | disposition home or self-care (01) ==
LOC: RAD 12:30
PROVIDERS: PCP Nurse Practitioner Family; Visit Provider Otolaryngology
DX: N94.6 Dysmenorrhea, unspecified (principal); J32.9 Chronic sinusitis, unspecified; J34.2 Deviated nasal septum
CPT/HCPCS: 70486

== ENCOUNTER 2023-09-22 11:32 | Oncology outpatient (recurring) (ONCR) | payer MEDICARE, MEDICAID, SELFPAY ==
[2022-10-29 15:52] VITALS: BP 134/79; BMI 27.1
--- NOTE | 2023-09-18 09:23 | PC.NURSE ---
Pt did not show for appointment, called pt cell phone, no answer. Left name and number for return call. SILVER
[2023-09-22 12:00] VITALS: BP 116/64; PULSE 71; RESP 16; TEMP 37.1; O2SAT 98
[2023-09-22] MEDS: acetaminophen 325 mg Tablet 650 MG PO (12:11)
[2023-09-22 12:12] LABS: Eosinophils # 0.1 10^3/uL (0.0-0.8); Hematocrit 40.2 % (36-47); Lymphocytes % 33.3 %; Mean Corpuscular HGB Conc 32.1 g/dL (30-55); Mean Corpuscular Hemoglobin 28.8 pg (27-33); Mean Corpuscular Volume 89.7 fl (85-98); Mean Platelet Volume 9.6 fL (7.4-10.4); Monocytes # 0.2 10^3/uL (0.2-0.9); Monocytes % 6.6 %; Neutrophils # 1.67 10^3/uL (1.8-7.7); Neutrophils % 55.1 %; Nucleated Red Blood Cells % 0 %; Platelet Count 225 10^3/cmm (157-399); Red Blood Count 4.48 10^6/uL (3.85-5.65); Red Cell Distribution Width 12.3 % (12.1-15.1); White Blood Count 3.03 10^3/uL (3.29-11.43)
[2023-09-22] MEDS: famotidine 20 mg Tablet PO (12:12)
[2023-09-22 12:28] LABS: Alanine Aminotransferase < 5 U/L (0-33); Albumin Level 4.3 g/dL (3.5-5.2); Alkaline Phosphatase 56 U/L (35-105); Aspartate Amino Transferase 26 U/L (0-32); Creatinine Clr Calc Pharmacy 111.7178; Globulin 2.6 g/dL (1.3-4.6); Glomerular Filtration Rate 106.3 mL/min (90-130); Total Bilirubin 0.4 mg/dL (0.15-1.2); Total Protein 6.9 g/dL (6.6-8.7)
[2023-09-22] MEDS: anifrolumab-fnia 300 MG in sodium chloride 0.9% (100 ml) 100 ML 204 MG IV (12:50)
== END 2023-10-16 23:59 | disposition home or self-care (01) ==
PROVIDERS: Internal Medicine Rheumatology; PCP Nurse Practitioner Family; Visit Provider Internal Medicine Medical Oncology
DX: J34.2 Deviated nasal septum (principal); J34.89 Other specified disorders of nose and nasal sinuses; J34.1 Cyst and mucocele of nose and nasal sinus; M32.10 Systemic lupus erythematosus, organ or system involvement unspecified; Z79.899 Other long term (current) drug therapy
CPT/HCPCS: 80076; 82565; 85025; 86140; 96413; 99214; A4222; J0491

== ENCOUNTER 2023-10-22 14:40 | Oncology outpatient (recurring) (ONCR) | payer MEDICARE, MEDICAID, SELFPAY ==
[2022-10-29 15:52] VITALS: BP 134/79; BMI 27.1
[2023-10-22 15:22] VITALS: BP 107/64; PULSE 60; O2SAT 97
[2023-10-22] MEDS: sodium chloride 0.9% 250 ML 75 ML IV (16:04)
[2023-10-22] MEDS: acetaminophen 325 mg Tablet 650 MG PO (16:05)
[2023-10-22] MEDS: famotidine 20 mg Tablet PO (16:05)
[2023-10-22] MEDS: anifrolumab-fnia 300 MG in sodium chloride 0.9% (100 ml) 100 ML 204 MG IV (16:11)
[2023-10-22 16:54] VITALS: BP 124/30; PULSE 61; O2SAT 97
== END 2023-11-15 23:59 | disposition home or self-care (01) ==
PROVIDERS: PCP Nurse Practitioner Family; Visit Provider Internal Medicine Medical Oncology
DX: M32.10 Systemic lupus erythematosus, organ or system involvement unspecified (principal)
CPT/HCPCS: 96413; A4222; J0491; J7050

== ENCOUNTER 2023-12-04 08:06 | Oncology outpatient (recurring) (ONCR) | payer MEDICARE, MEDICAID, SELFPAY ==
[2022-10-29 15:52] VITALS: BP 134/79; BMI 27.1
== END 2023-12-16 23:59 | disposition home or self-care (01) ==
PROVIDERS: PCP Nurse Practitioner Family; Visit Provider Neurological Surgery
DX: M32.10 Systemic lupus erythematosus, organ or system involvement unspecified (principal)

== ENCOUNTER 2024-01-19 09:00 | Oncology outpatient (recurring) (ONCR) | payer MEDICARE, MEDICAID, SELFPAY ==
[2022-10-29 15:52] VITALS: BP 134/79; BMI 27.1
[2023-12-22 10:39] VITALS: BP 115/69; PULSE 64; RESP 18; TEMP 36.7; O2SAT 96
[2023-12-22 10:45] LABS: Basophils % 0.5 %; Eosinophils # 0.1 10^3/uL (0.0-0.8); Eosinophils % 3.6 %; Hematocrit 40.5 % (36-47); Lymphocytes # 1.3 10^3/uL (0.8-4.8); Lymphocytes % 32.6 %; Mean Corpuscular HGB Conc 32.6 g/dL (30-55); Mean Corpuscular Hemoglobin 28.9 pg (27-33); Mean Corpuscular Volume 88.6 fl (85-98); Monocytes # 0.3 10^3/uL (0.2-0.9); Monocytes % 8.2 %; Neutrophils # 2.13 10^3/uL (1.8-7.7); Neutrophils % 54.8 %; Nucleated Red Blood Cells % 0 %; Platelet Count 220 10^3/cmm (157-399); Red Blood Count 4.57 10^6/uL (3.85-5.65); Red Cell Distribution Width 12.7 % (12.1-15.1); White Blood Count 3.89 10^3/uL (3.29-11.43)
[2023-12-22] MEDS: famotidine 20 mg Tablet PO (10:55)
[2023-12-22] MEDS: anifrolumab-fnia 300 MG in sodium chloride 0.9% (100 ml) 100 ML 204 MG IV (11:03)
[2023-12-22 11:07] LABS: Alanine Aminotransferase 11 U/L (0-33); Albumin Level 4.2 g/dL (3.5-5.2); Alkaline Phosphatase 52 U/L (35-105); Aspartate Amino Transferase 20 U/L (0-32); Globulin 2.1 g/dL (1.3-4.6); Glomerular Filtration Rate 88.9 mL/min (90-130); Total Bilirubin 0.3 mg/dL (0.15-1.2); Total Protein 6.3 g/dL (6.6-8.7)
[2023-12-22 12:05] VITALS: BP 107/63; PULSE 64; RESP 16; TEMP 36.5; O2SAT 97
== END 2024-01-19 23:59 | disposition home or self-care (01) ==
PROVIDERS: Internal Medicine Rheumatology; PCP Nurse Practitioner Family; Visit Provider Neurological Surgery
DX: Z53.9 Procedure and treatment not carried out, unspecified reason
CPT/HCPCS: 80076; 82565; 85025; 86140; 96365; A4222; J0491

== ENCOUNTER → 2024-02-23 11:45 | Outpatient (BNVA) | payer MEDICARE, MEDICAID, SELFPAY ==
[2022-10-29 15:52] VITALS: BP 134/79; BMI 27.1
== END ==
PROVIDERS: PCP Nurse Practitioner Family; Visit Provider Internal Medicine Rheumatology
DX: M32.19 Other organ or system involvement in systemic lupus erythematosus (principal); G62.9 Polyneuropathy, unspecified; Z79.899 Other long term (current) drug therapy; Z11.1 Encounter for screening for respiratory tuberculosis; Z11.59 Encounter for screening for other viral diseases
CPT/HCPCS: 99214